=== PATIENT | male | born 1950 | race Caucasian/White ===

== ENCOUNTER 2018-09-15 07:30 | Day surgery (SDC) | payer MEDICARE ==
[2018-09-14 12:42] LABS: Absolute Monocytes 0.6 K/uL (0.1-1.3); Absolute Neutrophil 4.5 K/uL (1.8-8.0); Basophils % 0.8 % (0-1.3); Eosinophils % 3.6 % (0-4.4); MPV 9.1 fL (7.6-11.3); Monocytes % 8.3 % (3.3-12.3); RBC Red Blood Cell Count 5.58 M/uL (4.33-5.43)
--- NOTE | 2018-09-14 12:44 | RAD REPORT ---
EXAM DESCRIPTION: RAD - Chest Pa And Lat (2 Views) - 09/14/2018 12:37 pm CLINICAL HISTORY: Preop chest, pending cardiac catheterization, cardioversion COMPARISON: None. TECHNIQUE: PA and lateral views of the chest were obtained. FINDINGS: The lungs are clear. Lung markings are minimally prominent believed be baseline. Acute tea ng parenchymal process not suspected. Heart size is normal and central vasculature is within normal l imits. No pleural effusion or pneumothorax seen. No acute bony finding noted. No aortic abnormalit y. IMPRESSION: No acute cardiopulmonary process.
[2018-09-14 13:04] LABS: Potassium 4.5 mmol/L (3.5-5.1)
[2018-09-14 13:06] LABS: Protime INR 1.55
[2018-09-15] MEDS ORDERED: NA CHLORIDE 0.9% 500 ML ONE (07:43)
[2018-09-15] MEDS ORDERED: MIDAZOLAM HCL 5 MG/5 ML INJ ONE (08:11)
--- OUTSIDE RECORDS SUMMARY | 2018-09-15 08:12 | XMS REPORT ---
:1950 Author Organization eClinicalWorks Care Team Providers Name Role Phone Lui, Na Provider Role Unavailable Allergies No Known Allergies Problems Problem Type Condition Code Onset Dates Condition Status Problem Mixed hyperlipidemia E78.2 Active Problem Cervicalgia M54.2 Active Problem Seasonal allergies J30.2 Active Problem Obstructive sleep apnea (adult) G47.33 Active (pediatric) Problem Dependence on other enabling Z99.89 Active machines and devices Problem SHALINI (obstructive sleep apnea) G47.33 Active Problem Osteoarthritis, unspecified M19.90 Active osteoarthritis type, unspecified site Problem Intractable migraine without status G43.919 Active migrainosus, unspecified migraine type Problem Chronic fatigue R53.82 Active Problem 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
--- OUTSIDE RECORDS SUMMARY | 2018-09-15 08:12 | XMS REPORT ---
[...] Status Dosage System Date Date Duloxetine HCl [facility] 76332749421 30 MG Orally Jul 22, Active 1 capsule Once a day 2017 Results No Known Results Summary Purpose eClinicalWorks Submission
--- OUTSIDE RECORDS SUMMARY | 2018-09-15 08:12 | XMS REPORT ---
:1950 Author Organization [employer] Care Team Providers Name Role Phone Lui, Na Provider Role Unavailable Allergies, Adverse Reactions, Alerts Substance Reaction Event Type N.K.D.A. Info Not Available Non Drug Allergy Problems Problem Type Condition Code Onset Dates Condition Status Assessment Mixed hyperlipidemia E78.2 Active Assessment Intractable migraine without status G43.919 Active migrainosus, unspecified migraine type Assessment Personal history of cerebrovascular I69.90 Active accident with residual effects Assessment Seasonal allergies J30.2 Active Problem Hypertension I10 Active Assessment Chronic fatigue R53.82 Active Problem Migraine G43.909 Active Assessment Osteoarthritis, unspecified M19.90 Active osteoarthritis type, unspecified site Problem Mixed hyperlipidemia E78.2 Active Problem Cervicalgia M54.2 Active Problem Seasonal allergies J30.2 Active Problem Obstructive sleep apnea (adult) G47.33 Active (pediatric) Problem Dependence on other enabling Z99.89 Active machines and devices Assessment SHALINI (obstructive sleep apnea) G47.33 Active Assessment Apneic episode R06.81 Active Problem SHALINI (obstructive sleep apnea) G47.33 Active Assessment Tachycardia R00.0 Active Problem Osteoarthritis, unspecified M19.90 Active osteoarthritis type, unspecified site Problem Intractable migraine without status G43.919 Active migrainosus, unspecified migraine type Problem Chronic fatigue R53.82 Active Problem 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 Assessment Hypertension I10 Active Assessment Snoring R06.83 Active Assessment Cervicalgia M54.2 Active Assessment Somnolence, daytime R40.0 Active Problem Depression F32.9 Active Problem Stroke I63.9 Active Assessment 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 [address] - Orally Active as directed Aspir-81 ND 70701621561 81 MG Orally Active 1 tablet Once a day Losartan [facility] 42955357740 100 MG Orally Active 1 tablet Potassium Once a day Duloxetine HCl [facility] 90301075694 60 MG Orally Active 1 capsule Once a day Zyrtec Allergy [facility] 16338462246 10 MG Orally Active 1 tablet Once a day Amlodipine [facility] 94236756066 5 MG Orally Active 1 tablet Besylate Once a day Results No Known Results Summary Purpose eClinicalWorks Submission
[2018-09-15] MEDS ORDERED: METOPROLOL TARTRATE 5 MG/5 ML INJ IV ONE ×3 (08:15→08:24)
--- NOTE | 2018-09-15 17:08 | EKG ---
Test Date: 2018-09-15 Test Time: 08:17:35 Wire Steward: KUMAR MEASUREMENT RESULTS: Intervals: Rate: 81 TN: 188 QRSD: 76 QT: 392 QTc: 455 Garfield: P: 23 TN: 188 QRS: 25 T: 44 INTERPRETIVE STATEMENTS: Normal sinus rhythm Normal ECG No previous ECG available for comparison Electronically Signed On 09-15-18 17:06:56 [employer] by Mario Bolden
--- NOTE | 2018-09-15 21:01 | OP ---
Date of Procedure: 09/15/2018 Surgeon: Mario Bolden MD Procedure: Direct-current cardioversion. Indication: Atrial fibrillation. Indications: Mr. Granados is a 67-year-old with history of hypertension, paroxysmal atrial fibrillation , and history of CVA in the past. He is on Xarelto and metoprolol. He continues to have some diffic ulties with his atrial fibrillation with some dyspnea on exertion. He was admitted for cardioversion as an outpatient. Description Of Procedure: He was given a total of 12 mg of Versed for IV sedation. He received 4 to justa shocks, 2 shocks at 200 which did not convert him. The first shock of 300 converted him, but the n he went back into atrial fibrillation. He received 50 mg of Lopressor IV push slowly and then anot her shock of 300 converted him to sinus rhythm. There were no complications. No blood loss. Total conscious sedation was 45 minutes. Final Diagnosis: Atrial fibrillation, status post successful cardioversion. We will continue the metoprolol and Xarelto. I will put him on Multaq 400 b.i.d. He will see me in the office in 3 weeks. Additional Forensic Toxicologist: Mila Romero. LEXIE/RENU Voice ID: [id number] Report ID: [id number]
== END 2018-09-15 10:02 | disposition home health service (06) ==
LOC: CCL 07:30
DX: I48.0 Paroxysmal atrial fibrillation (principal); I10 Essential (primary) hypertension; F41.9 Anxiety disorder, unspecified; Z79.01 Long term (current) use of anticoagulants; Z86.73 Personal history of transient ischemic attack (TIA), and cerebral infarction without residual deficits; Z87.891 Personal history of nicotine dependence; Z82.49 Family history of ischemic heart disease and other diseases of the circulatory system
CPT/HCPCS: 36415; 71046; 80048; 85025; 85610; 85730; 92960; 93005; J2250

== ENCOUNTER 2020-03-02 07:40 | Day surgery (SDC) | payer MEDICARE ==
--- NOTE | 2020-02-29 12:00 | RAD REPORT ---
EXAM DESCRIPTION: RAD - Chest Pa And Lat (2 Views) - 02/29/2020 11:51 am CLINICAL HISTORY: pre op for [employer]orer [employer] Chest pain. COMPARISON: Chest Pa And Lat (2 Views) dated 09/14/2018 FINDINGS: The lungs are clear. The heart is normal in size. No displaced fractures. IMPRESSION: No acute or concerning finding suspected.
[2020-02-29 12:07] LABS: Absolute Lymphocytes (CBC) 1.9 K/uL (0.7-4.9); Basophils % 0.7 % (0-1.3); Hematocrit 47.1 % (39.6-49.0); Lymphocytes % 24.1 % (15.3-44.8); MPV 8.5 fL (7.6-11.3); RBC Red Blood Cell Count 5.15 M/uL (4.33-5.43)
[2020-02-29 12:10] LABS: Protime INR 1.32
[2020-02-29 12:18] LABS: Potassium 3.7 mmol/L (3.5-5.1)
[2020-03-02] MEDS ORDERED: NA CHLORIDE 0.9% 500 ML ONE (07:50)
--- OUTSIDE RECORDS SUMMARY | 2020-03-02 07:53 | XMS REPORT ---
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 Problem Decreased hearing of left ear H91.92 Active Problem Left non-suppurative otitis media H65.92 Active Problem Decreased hearing of both ears H91.93 Active Problem Obstructive sleep apnea (adult) G47.33 Active (pediatric) Problem Dependence on other enabling Z99.89 Active machines and devices Problem Chronic a-fib I48.2 Active Problem SHALINI (obstructive sleep apnea) G47.33 Active Problem Mixed hyperlipidemia E78.2 Active Problem Seasonal allergies J30.2 Active Problem Stroke I63.9 Active Problem Hypertension I10 Active Problem Cervicalgia M54.2 Active Problem Migraine G43.909 Active Problem Depression F32.9 Active Problem Intractable migraine without status G43.919 Active migrainosus, unspecified migraine type Medications No Known Medications Results No Known Results Summary Purpose eClinicalWorks Submission
--- OUTSIDE RECORDS SUMMARY | 2020-03-02 07:53 | XMS REPORT | Continuity of Care Document ---
:1950 Author Organization [facility] t Address [address] [place] [address] Care Team Providers Name Role Phone Unavailable Unavailable Unavailable Payers Payer Name Policy Type Policy Number Effective Date Expiration Date S ource Problems Condition Condition Condition Status Onset Resolution Last Treating Co mments Source Name Details Category Date Date Treatment Clinician Date Mixed Mixed Problem Active [facility] hyperlipid hyperlipid Celia kes - emia emia [facility] Cervicalgi Cervicalgi Problem Active [facility] Seasonal Seasonal Problem [facility] allergies [facility] SHALINI SHALINI Problem Active [facility] (obstructi (obstructi Celia kes - ve sleep ve sleep Memori a apnea) apnea) l Outpati ent Clinics Dependence Dependence Problem Active [facility] on other on other [facility] - enabling enabling Memori a machines machines l and and Outpati devices devices ent Clinics Osteoarthr Osteoarthr Diagnosis Active [facility] itis, itis, [facility] - unspecifie unspecifie Me moria d d l osteoarthr osteoarthr Ou tpati itis type, itis type, en t unspecifie unspecifie Cl inics d site d site Intractabl Intractabl Problem Active [facility] e migraine e migraine Celia kes - without without Memoria status status l migrainosu migrainosu Ou tpati s, s, ent unspecifie unspecifie Cl inics d migraine d migraine type type Chronic Chronic Problem Active [facility] fatigue fatigue [facility] Moderate Moderate Diagnosis Active [facility] episode of episode of Celia kes - recurrent recurrent Florian 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 tpati disorder disorder ent Clinics Depression Depression Problem Active [facility] Stroke Stroke Problem [facility] Hypertensi Hypertensi Problem Active [facility] on on [facility] Migraine Migraine Problem Active [facility] Chronic Chronic Problem Active [facility] a-fib a-fib [facility] Decreased Decreased Problem Active [facility] hearing of hearing of Celia kes - left ear left ear Memori a l [facility] Left Left Problem Active [facility] non-suppur non-suppur Celia kes - ative ative Memoria otitis otitis l media media [facility] Decreased Decreased Problem Active [facility] hearing of hearing of Celia kes - both ears both ears Florian lonnie l [facility] Blood Blood Diagnosis Active [facility] tests for tests for Luke s - routine routine [facility] general general l physical physical Outpat i examinatio examinatio en t n n Clinics Allergies, Adverse Reactions, Alerts Allergy Allergy Status Severity Reaction(s) Onset Inactive Treating Comm ents Source Name Type Date Date Clinician No Known DA Active [facility]ie 10-11 s 00:00: [address] Medications Ordered Filled Start Stop Current Ordering Indication Dosage Frequency Signature Comments Components Source Medication Medication Date Date Medication? Clinician (SIG) Name Name Hydrochloro Hydrochloro Yes Na Lui [address] [facility] thiazide thiazide 5-12 in the [facility] - 00:00: morning [facility] 00 [facility] Losartan Losartan Yes Na Lui [address] [facility] Potassium-H Potassium-H 7-18 L ukes - CTZ CTZ 00:00: Memoria 00 l [facility] Neomycin-Po Neomycin-Po Yes Na Lui [address] [facility] [address] lymyxin-HC lymyxin-HC 4-12 into Adan es - 00:00: affected Memoria 00 ear l [facility] Augmentin Augmentin Yes Na Lui [address] [facility] 4-12 [facility] - 00:00: Memoria 00 l Outpat[facility] ent Clinics Crestor Crestor Yes Na Lui [address] [facility] 3-05 [facility] - 00:00: Memoria 00 l Outpati ent Clinics Tramadol Tramadol Yes Na Lui [address] [facility] HCl HCl 3-05 as needed [facility] - 00:00: Memoria 00 l Outpati ent Clinics Metoprolol Metoprolol Yes Na Lui [address] [facility] Succinate Succinate 3-05 [facility] - 00:00: Memoria 00 l Outpati ent Clinics Xarelto Xarelto Yes Na Lui [address] [facility] 3-05 with food [facility] - 00[facility]00: Memoria 00 l Outpati ent Clinics Losartan Losartan Yes Na Lui [address] [facility] Potassium Potassium [facility] Duloxetine Duloxetine Yes Na Lui [address] [facility] HCl HCl [facility] Zyrtec Zyrtec Yes Na Lui [address] [facility] Allergy Allergy [facility]ics Aspir-81 -81 Yes Na Lui [address] [facility]ics Multivitami Multivitami Yes Na Lui as [facility] n n directed [facility] [address] [facility] Sotalol HCl Sotalol HCl Yes Na Lui [address] [facility] Procedures This patient has no known procedures. Encounters Start End Encounter Admission Attending Care Care Encounter Source Date/Time Date/Time Type Type Clinicians Facility Department ID 2019-12-28 2019-12-28 Outpatient Saadia Zeet [id number] [facility] 11:20:00 11:20:00 t [employer] [facility] Medicine Outpati ent Clinics 2019-12-17 2019-12-17 [place] [place] [place] [id number] [address] 11:08:00 11:08:00 t [employer] [facility] Medicine l Medicine Outpati ent Clinics 2019-09-06 2019-09-06 [place] [place] [id number] 14:37:00 14:37:00 t Specialty/U Celia kes - Specialty rology [facility] a /Urology Clinic l Clinic Outpati ent Clinics 2019-06-17 2019-06-17 [facility] [id number] [address] 13:15:00 13:15:00 t [place] [email or web address] [facility] - Drive [facility] Medicine l Medicine Outpati ent Clinics 2019-04-09 2019-04-09 [facility] [id number] [address] 13:10:00 13:10:00 t [place] [email or web address] [facility] - Drive [facility] Medicine Outpati ent Clinics 2019-03-04 2019-03-04 [facility] [id number] 09:40:00 09:40:00 t [email or web address] [email or web address] - Zapproved [facility] l Medicine Outpati ent Clinics 2018-12-04 2018-12-04 [facility] [id number] 15:26:00 15:26:00 t Admittedly s - Zapproved [facility] Medicine Medicine Outpati ent Clinics 2018-11-27 2018-11-27 [facility] [id number] 09:40:00 09:40:00 t [place] [email or web address] Hublished [facility] Medicine l Medicine Outpati ent Clinics 2018-10-20 2018-10-20 [facility] [id number] [address] 08:15:00 08:15:00 t [email or web address] [email or web address] - Zapproved [facility] Medicine l Medicine Outpati ent Clinics 2018-08-21 2018-08-21 [facility] [id number] [address] 08:57:00 08:57:00 t [email or web address] [email or web address] [facility] - Zapproved [facility] Medicine Outpati ent Clinics 2018-08-13 2018-08-13 [facility] [id number] 08:55:00 08:55:00 t [email or web address] [email or web address] - Zapproved [facility] Medicine Outpati ent Clinics 2018-07-22 2018-07-22 [facility] [id number] 08:30:00 08:30:00 t Admittedly s Hublished [facility] Medicine Outpati ent Clinics Results Test Description Test Time Test Comments Results Result Comments Source BASIC METABOLIC PANEL 2019-10-13 07:19:00 Test Item Value Reference Range Interpretation Comme nts SODIUM (test code = NA) 137 MMOL/L 137-145 N POTASSIUM (test code = K) 3.6 MMOL/L 3.5-5.1 N CHLORIDE (test code = CL) 101 MMOL/L 98-107 N CARBON DIOXIDE (test code = CO2) 27 MMOL/L 22-30 N GLUCOSE (test code = GLU) 136 MG/DL 74-106 H BLOOD UREA NITROGEN (test code = 13 MG/DL 9-20 N BUN) GLOMERULAR FILTRATION RATE (test > 60 Reporting units: ml/min/1.73 code = GFR) m2 (Modified M DRD Formula)Referen ce Range: > or = 60 ml/min/1.7 3 m2 CREATININE (test code = CREAT) 0.70 MG/DL 0.66-1.25 CALCIUM (test code = CA) 8.2 MG/DL 8.4-10.2 L [id number] 07:18:00 Test Item Value Reference Range Interpretation Comments ACT-ISTAT (test code = ACTI) 208 SEC 74-137 H BASIC METABOLIC [id number] 06:39:00 Test Item Value Reference Range Interpretation Comments SODIUM (test code = 137 MMOL/L 137-145 N NA) POTASSIUM (test code = MMOL/L 3.5-5.1 K) CHLORIDE (test code = 101 MMOL/L 98-107 N CL) CARBON DIOXIDE (test 27 MMOL/L 22-30 N code = CO2) GLUCOSE (test code = 136 MG/DL 74-106 H GLU) BLOOD UREA NITROGEN 13 MG/DL 9-20 N (test code = BUN) GLOMERULAR FILTRATION > 60 Report ing units: RATE (test code = GFR) ml/mi n/1.73 m2 (Modified MDRD Formula)Referen ce Range: > or = 6 0 ml/min/1.73 m2 CREATININE (test code 0.70 MG/DL 0.66-1.25 = CREAT) CALCIUM (test code = 8.2 MG/DL 8.4-10.2 L CA) BASIC METABOLIC [id number] 06:38:00 Test Item Value Reference Range Interpretation Comments SODIUM (test code = 137 MMOL/L 137-145 N NA) POTASSIUM (test code = MMOL/L 3.5-5.1 K) CHLORIDE (test code = 101 MMOL/L 98-107 N CL) CARBON DIOXIDE (test MMOL/L 22-30 code = CO2) GLUCOSE (test code = MG/DL 74-106 GLU) BLOOD UREA NITROGEN MG/DL 9-20 (test code = BUN) GLOMERULAR FILTRATION > 60 Report ing units: RATE (test code = GFR) ml/mi n/1.73 m2 (Modified MDRD Formula)Referen ce Range: > or = 6 0 ml/min/1.73 m2 CREATININE (test code 0.70 MG/DL 0.66-1.25 = CREAT) CALCIUM (test code = MG/DL 8.7-9.7 CA) BASIC METABOLIC [id number] 06:38:00 Test Item Value Reference Range Interpretation Comments SODIUM (test code = 137 MMOL/L 137-145 N NA) POTASSIUM (test code = MMOL/L 3.5-5.1 K) CHLORIDE (test code = 101 MMOL/L 98-107 N CL) CARBON DIOXIDE (test 27 MMOL/L 22-30 N code = CO2) GLUCOSE (test code = MG/DL 74-106 GLU) BLOOD UREA NITROGEN 13 MG/DL 9-20 N (test code = BUN) GLOMERULAR FILTRATION > 60 Report ing units: RATE (test code = GFR) ml/mi n/1.73 m2 (Modified MDRD Formula)Referen ce Range: > or = 6 0 ml/min/1.73 m2 CREATININE (test code 0.70 MG/DL 0.66-1.25 = CREAT) CALCIUM (test code = MG/DL 8.7-9.7 CA) BASIC METABOLIC [id number] 06:35:00 Test Item Value Reference Range Interpretation Comments SODIUM (test code = NA) 137 MMOL/L 137-145 N POTASSIUM (test code = K) MMOL/L 3.5-5.1 CHLORIDE (test code = CL) 101 MMOL/L 98-107 N CARBON DIOXIDE (test code = CO2) MMOL/L 22-30 GLUCOSE (test code = GLU) MG/DL 74-106 BLOOD UREA NITROGEN (test code = MG/DL 9-20 BUN) GLOMERULAR FILTRATION RATE (test code = GFR) CREATININE (test code = CREAT) MG/DL 0.66-1.25 CALCIUM (test code = CA) MG/DL 8.7-9.7 CBC W/AUTO [id number] 06:17:00 Test Item Value Reference Range Interpretation Comments WHITE BLOOD CELL (test code = 12.7 K/MM3 3.8-9.8 H WBC) RED BLOOD CELL (test code = 4.32 M/MM3 3.95-5.67 RBC) HEMOGLOBIN (test code = HGB) 13.6 G/DL 12.4-16.7 HEMATOCRIT (test code = HCT) 40.7 % 35.9-49.5 MEAN CELL VOLUME (test code = 94 fL 81.7-96.1 N MCV) MEAN CELL HGB (test code = MCH) 31.5 pg 27.6-33.2 N MEAN CELL HGB CONCETRATION 33.4 % 32.9-35.5 N (test code = MCHC) RED CELL DISTRIBUTION WIDTH 14.0 % 12.1-15.2 N (test code = RDW) PLATELET COUNT (test code = 138 K/MM3 129-368 PLT) MEAN PLATELET VOLUME (test code 10.3 fl 7.4-10.4 N = MPV) NEUTROPHIL % (test code = NT%) 84.3 % 43-75 H IMMATURE GRANULOCYTE % (test 0.6 % 0.0-2.0 N code = IG%) LYMPHOCYTE % (test code = LY%) 9.6 % 14-44 L MONOCYTE % (test code = MO%) 5.4 % 4-13 N EOSINOPHIL % (test code = EO%) 0.0 % 0-6 N BASOPHIL % (test code = BA%) 0.1 % 0-2 N NUCLEATED RBC % (test code = 0.0 % 0-1.0 N NRBC%) NEUTROPHIL # (test code = NT#) 10.66 K/mm3 2.0-7.6 H IMMATURE GRANULOCYTE # (test 0.08 x10 3/uL 0-0.03 H code = IG#) LYMPHOCYTE # (test code = LY#) 1.22 K/mm3 1.0-3.8 N MONOCYTE # (test code = MO#) 0.68 K/mm3 0.1-0.8 N EOSINOPHIL # (test code = EO#) 0.00 K/mm3 0.0-0.2 N BASOPHIL # (test code = BA#) 0.01 K/mm3 0.0-0.2 N NUCLEATED RBC # (test code = 0.00 K/mm3 0.0-0.1 N NRBC#) [id number] 12:37:00 Test Item Value Reference Range Interpretation Comments ACT-ISTAT (test code = ACTI) 323 SEC 74-137 H [id number] 11:26:00 Test Item Value Reference Range Interpretation Comments ACT-ISTAT (test code = ACTI) 362 SEC 74-137 H [id number] 11:26:00 Test Item Value Reference Range Interpretation Comments ACT-ISTAT (test code = ACTI) 285 SEC 74-137 H [id number] 11:26:00 Test Item Value Reference Range Interpretation Comments ACT-ISTAT (test code = ACTI) 329 SEC 74-137 H [id number] 11:26:00 Test Item Value Reference Range Interpretation Comments ACT-ISTAT (test code = ACTI) 296 SEC 74-137 H [id number] 11:26:00 Test Item Value Reference Range Interpretation Comments ACT-ISTAT (test code = ACTI) 307 SEC 74-137 H BASIC METABOLIC [id number] 06:52:00 Test Item Value Reference Range Interpretation Comments SODIUM (test code = 138 MMOL/L 137-145 N NA) POTASSIUM (test code = 3.6 MMOL/L 3.5-5.1 N K) CHLORIDE (test code = 97 MMOL/L 98-107 L CL) CARBON DIOXIDE (test 32 MMOL/L 22-30 H code = CO2) GLUCOSE (test code = 147 MG/DL 74-106 H GLU) BLOOD UREA NITROGEN 13 MG/DL 9-20 N (test code = BUN) GLOMERULAR FILTRATION > 60 Report ing units: RATE (test code = GFR) ml/mi n/1.73 m2 (Modified MDRD Formula)Referen ce Range: > or = 6 0 ml/min/1.73 m2 CREATININE (test code 1.00 MG/DL 0.66-1.25 N = CREAT) CALCIUM (test code = 9.1 MG/DL 8.4-10.2 N CA) [id number] 06:52:00 Test Item Value Reference Range Interpretation Comments MAGNESIUM (test code = MAG) 1.9 MG/DL 1.6-2.3 N PROTHROMBIN [id number] 06:52:00 Test Item Value Reference Range Interpretation Comments PROTHROMBIN TIME 11.8 SECONDS 9.4-12.5 N PATIENT (test code = PTP) INTERNATIONAL NORMAL 1.1 The INR is to be RATIO (test code = used only for INR) monitoring oral anticoagulantth erap y. INDICATION I NR VALUE ---- ---- ---- -------1. Prophylaxis, de ep venous thrombos is, including hig h risk surgery. 2.0 - 3.0 2. Prophylaxis, de ep venous thrombos is, hip surgery, treatment for d eep venous thrombosis or pulmonary prevention of systemic emboli sm in patients wit h valvular heart disease, atrial fibrillation, tissue heart va lve, or acute myocar dial infarction. 2.0 - 3 .0 3. Mechanical prosthesis hear t valves, recurrent syste vandana embolism. 3.0 - 4.5 PTT [id number] 06:52:00 Test Item Value Reference Range Interpretation Comments PTT ACTIVATED (test code = APTT) 32.5 SECONDS 25.1-36.5 N BASIC METABOLIC [id number] 06:49:00 Test Item Value Reference Range Interpretation Comments SODIUM (test code = NA) 138 MMOL/L 137-145 N POTASSIUM (test code = K) 3.6 MMOL/L 3.5-5.1 N CHLORIDE (test code = CL) 97 MMOL/L 98-107 L CARBON DIOXIDE (test code = CO2) MMOL/L 22-30 GLUCOSE (test code = GLU) MG/DL 74-106 BLOOD UREA NITROGEN (test code = MG/DL 9-20 BUN) GLOMERULAR FILTRATION RATE (test code = GFR) CREATININE (test code = CREAT) MG/DL 0.66-1.25 CALCIUM (test code = CA) MG/DL 8.7-9.7 [id number] 06:49:00 Test Item Value Reference Range Interpretation Comments MAGNESIUM (test code = MAG) MG/DL 1.6-2.3 CBC W/AUTO [id number] 06:39:00 Test Item Value Reference Range Interpretation Comments WHITE BLOOD CELL (test code = 9.2 K/MM3 3.8-9.8 N WBC) RED BLOOD CELL (test code = 5.49 M/MM3 3.95-5.67 N RBC) HEMOGLOBIN (test code = HGB) 17.2 G/DL 12.4-16.7 H HEMATOCRIT (test code = HCT) 50.8 % 35.9-49.5 H MEAN CELL VOLUME (test code = 93 fL 81.7-96.1 N MCV) MEAN CELL HGB (test code = MCH) 31.3 pg 27.6-33.2 N MEAN CELL HGB CONCETRATION 33.9 % 32.9-35.5 N (test code = MCHC) RED CELL DISTRIBUTION WIDTH 13.8 % 12.1-15.2 N (test code = RDW) PLATELET COUNT (test code = 193 K/MM3 129-368 N PLT) MEAN PLATELET VOLUME (test code 9.9 fl 7.4-10.4 N = MPV) NEUTROPHIL % (test code = NT%) 64.5 % 43-75 N IMMATURE GRANULOCYTE % (test 0.2 % 0.0-2.0 N code = IG%) LYMPHOCYTE % (test code = LY%) 25.1 % 14-44 N MONOCYTE % (test code = MO%) 7.3 % 4-13 N EOSINOPHIL % (test code = EO%) 2.2 % 0-6 N BASOPHIL % (test code = BA%) 0.7 % 0-2 N NUCLEATED RBC % (test code = 0.0 % 0-1.0 N NRBC%) NEUTROPHIL # (test code = NT#) 5.94 K/mm3 2.0-7.6 N IMMATURE GRANULOCYTE # (test 0.02 x10 3/uL 0-0.03 N code = IG#) LYMPHOCYTE # (test code = LY#) 2.31 K/mm3 1.0-3.8 N MONOCYTE # (test code = MO#) 0.67 K/mm3 0.1-0.8 N EOSINOPHIL # (test code = EO#) 0.20 K/mm3 0.0-0.2 N BASOPHIL # (test code = BA#) 0.06 K/mm3 0.0-0.2 N NUCLEATED RBC # (test code = 0.00 K/mm3 0.0-0.1 N NRBC#) BEDSIDE [id number] 10:33:00 Test Item Value Reference Range Interpretation Comments BEDSIDE CREATININE (test code = 1.2 MG/DL 0.6-1.4 N CREATBED) - CTA [id number] 09:27:00 Patient Name: MARLEN CHUA Unit No: [id number] EXAMS: CPT CODE: [id number] CTA CHEST 07383 EXAM: - CTA CHEST Location code:C3 HISTORY: 68 yearsold Male with AFIB. Evaluate for pulmonary embolus. TECHNIQUE: CHEST:Volumetric data acquisition through the chest with intravenous contrast timed to maximally opacify the pulmonary arteries constructed as contiguous axial volumes, coronal MIP and sagittal reconstruction images. Automated exposure reduction (Auto mA/Smart mA) was utilized in compliance with ACR Image Wisely with DLP of 796 mGy-cm. COMPARISON: None FINDINGS: Lines and tubes: None. Pulmonary arteries: No filling defects are seen to the segmental level. Lungs and pleura: There is moderate dependent atelectasis present bilaterally. No suspicious pulmonary nodule. Mild pleural thickening seen along the inferior lingular segment. No pleural effusion. No pneumothorax. No pulmonary consolidation. No central endobronchial masses. Mediastinum and neck: Nonspecific 1.1 cm right paratracheal lymph node with normal fatty hilum. Otherwise no mediastinal or hilar adenopathy.. The thyroid gland is not well evaluated within the field of view. Cardiac: No cardiomegaly or pericardial effusion. Mild coronary artery calcification is present. Thoracic Aorta: The aorta is normal in caliber. A few scattered atherosclerotic calcifications noted along the thoracic aorta. Abdomen: There is small hiatal hernia. Otherwise, no upper abdominal abnormality identified. Musculoskeletal: No acute osseous findings. Mild, multilevel degenerative changes of the spine are present. IMPRESSION: No evidence of pulmonary embolus to the segmental level. No significant acute intrathoracic process. [facility] NAME: MARLEN CHUA [id number] [address] PHYS: [place] [address] : 1950 AGE: 68 SEX: M LOC: Z.CTS PHONE #: [phone] EXAM DATE: 10/11/2019 STATUS: REG CLI FAX #: [phone] RAD #: D/C DT PAGE 1 Signed Report (CONTINUED) Patient Na me: MARLEN CHUA Unit No: [id number] EXAMS: CPT CODE: [id number] CTA CHEST 13707 <Continued> at 926 Reported and signed by: Margaret Todd MD CC: Aleksandr Crain Technologist: Ivan Johnson, RT(R); Caden CTDI: DLP: Trnscrpt: 10/11/2019 (926) [email or web address] [facility] NAME: MARLEN [address] PHYS: [place] [address] : 1950 AGE: 68 SEX: M LOC: RachealCTS PHONE #: [phone] EXAM DATE: 10/11/2019 STATUS: REG CLI FAX #: [phone] RAD #: D/C DT PAGE 2 Signed Report Patient Name: MARLEN CHUA Unit No: [id number] EXAMS: CPT CODE: [id number] CTA CHEST 38571 <Continued> Orig Print D/T: S: 10/11/2019 (929) [facility] NAME: MARLEN CHUA[address] PHYS: [place] [address] : 1950 AGE: 68 SEX: M LOC: RachealCTS PHONE #: [phone] EXAM DATE: 10/11/2019 STATUS: REG CLI FAX #: [phone] RAD #: D/C DT PAGE 3 Signed Report
--- OUTSIDE RECORDS SUMMARY | 2020-03-02 07:53 | XMS REPORT ---
:1950 Author Organization [employer] Care Team Providers Name Role Phone Lui, Na Provider Role Unavailable Allergies, Adverse Reactions, Alerts Substance Reaction Event Type N.K.D.A. 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 Problem Decreased hearing of left ear H91.92 Active Problem Left non-suppurative otitis media H65.92 Active Assessment Hypertension I10 Active Assessment Osteoarthritis, unspecified M19.90 Active osteoarthritis type, unspecified site Problem Decreased hearing of both ears H91.93 Active Assessment Chronic a-fib I48.2 Active Problem Obstructive sleep apnea (adult) G47.33 Active (pediatric) Problem Dependence on other enabling Z99.89 Active machines and devices Problem Chronic a-fib I48.2 Active Problem SHALINI (obstructive sleep apnea) G47.33 Active Problem Mixed hyperlipidemia E78.2 Active Problem Seasonal allergies J30.2 Active Assessment 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 Problem Stroke I63.9 Active Problem Hypertension I10 Active Problem Cervicalgia M54.2 Active Problem Depression F32.9 Active Medications Medication Code Code Instructions Start End Status Dosage System Date Date Crestor [facility] 95487257944 10 MG Orally Active 1 table t Once a day Augmentin [facility] 03562792726 875-125 MG November Active 1 table t Orally every 12, 12 hrs 2018 Xarelto [facility] 13940794816 20 MG Orally Active 1 table t Once a day with food Multivitamin [facility] 71436-57[address] - Orally Active as directed Duloxetine HCl [facility] 54466008134 60 MG Orally Active 1 capsule Once a day Hydrochlorothiazide ND 74253040805 25 MG Orally December 27, Act valarie 1 tablet Once a day 2019 in the morning Qnfpywbq-Mkbpmqquk-AA [facility] 57078950169 3.5-13276-3 November Ac tive 4 drops Otic Three 12, into times a day 2018 affected ear Losartan [facility] 79903124200 100-12.5 MG February Active 1 table t Potassium-HCTZ Orally Once a 2018 Losartan Potassium [facility] 48685750161 100 MG Orally Act valarie 1 tablet Once a day Metoprolol Succinate ND 95858747236 100 MG Orally A ctive 1 capsule Once a day Aspir-81 ND 45584900253 81 MG Orally Active 1 tabl et Once a day Crestor ND 55844318169 10 MG Orally Active 1 table t Once a day Zyrtec Allergy [facility] 34219960211 10 MG Orally Active 1 tablet Once a day Sotalol HCl [facility] 00115908787 80 MG Orally Active 1 t ablet every 12 hrs Tramadol HCl [facility] 87433986473 50 MG Orally Active 1 tablet every 6 hrs as needed Results No Known Results Summary Purpose [employer]ClinicalWorks Submission
[2020-03-02] MEDS ORDERED: LIDOCAINE 1% MPF 30 ML VIAL ONE (08:10)
[2020-03-02] MEDS ORDERED: HEPA 1000U/500MLS 1,000 UNIT/500 ML BAG IV ONE (08:10)
[2020-03-02] MEDS ORDERED: MIDAZOLAM HCL 2 MG/2 ML INJ ONE ×2 (08:11→08:29)
[2020-03-02] MEDS ORDERED: FENTANYL CITR 100 MCG/2 ML ONE (08:12)
[2020-03-02] MEDS ORDERED: NA CHLORIDE 0.9% 0 ML ONE (08:12)
[2020-03-02] MEDS ORDERED: ATROPINE SULF 1 MG/10 ML SYR IV ONE (08:12)
[2020-03-02 09:58] VITALS: TEMP 97.8
[2020-03-02 11:12] VITALS: O2SAT 98
[2020-03-02 11:14] VITALS: BP 106/57
--- NOTE | 2020-03-02 21:57 | OP ---
Date of Procedure: 03/02/2020 Surgeon: Mario Bolden MD Ict Business Analyst: Lucas Gutierrez. Procedures: Left heart catheterization, selective coronary arteriogram, left ventriculogram, left ve ntricular end-diastolic pressure measurements. History Of Present Illness: Mr. Granados is a 69-year-old male, who has had paroxysmal atrial fibrillat ion, status post ablation in September of 2019, continued to have some chest pain consistent with unst able angina. Had a negative stress test. He had a Holter monitor showing paroxysmal nonsustained ve ntricular tachycardia. He does not tolerate Multaq, sotalol. He is on beta-blockers and he is on Xa relto, which has been held for 48 hours. Was scheduled for a heart catheterization today. Description Of Procedure: He was brought to the microbiology laboratory manager as an outpatient, prepped and draped in the routine sterile fashion. Given Versed and fentanyl for sedation. A 10 cc of Xylocaine was used to anesthesia in the right common femoral area. Using the Seldinger technique, we introduced a 6-[place] sheath successfully. Angiography there was normal. Angio-Seal was used to close the case. A [employer] ns catheter left and right were used to cannulate the left main and right main respectively. He was found to have normal coronaries in the LAD, circumflex and RCA was normal. He was codominant. Left ventriculogram was done using the JR4 catheter. He was found to have a normal ejection fraction. No wall motion abnormalities and his left ventricular end-diastolic pressure . There were no complications. Blood Loss: 5 cc. Anesthesia: Total conscious sedation was 30 minutes. Final Diagnoses: Ventricular tachycardia nonsustained, paroxysmal atrial fibrillation, normal heart catheterization, normal wall motion, normal ejection fraction, normal left ventricular end-diastolic pressure. We will continue medical management. The patient will go home today after 2 hours of bedrest and I w ill see him in the office in the next week or two. LEXIE/SALLYL Voice ID: [id number] Report ID: [id number]
== END 2020-03-02 11:00 | disposition home or self-care (01) ==
LOC: CCL 07:40
DX: I47.2 Ventricular tachycardia (principal); I48.0 Paroxysmal atrial fibrillation; I11.0 Hypertensive heart disease with heart failure; I50.22 Chronic systolic (congestive) heart failure; F41.9 Anxiety disorder, unspecified; Z11.59 Encounter for screening for other viral diseases; F17.210 Nicotine dependence, cigarettes, uncomplicated; Z79.01 Long term (current) use of anticoagulants; Z79.82 Long term (current) use of aspirin; Z82.49 Family history of ischemic heart disease and other diseases of the circulatory system
CPT/HCPCS: 85025; 80048; 36415; 85610; 85730; 71046; 93458; U0002; C1893; C1760; J2250 ×2; J3010; J7040; J1644; J0583

== ENCOUNTER 2023-07-02 10:15 | Emergency (ER) | payer MEDICARE ==
--- OUTSIDE RECORDS SUMMARY | 2023-07-02 10:21 | XMS REPORT | Continuity of Care Document ---
:1950 Author Organization [facility] t Address [address] [facility] [address] [place] [address] Care Team Providers Name Role Phone NADEEM JUSTIN Primary Care Physician Unavailable Bijan Nava Attending Clinician Unavailable Nadeem Justin Attending Clinician Unavailable Susana RN, Lisa Gibbons Attending Clinician Unavailable TIFFANIE SYED Attending Clinician Unavailable Only, Ang Db Test Attending Clinician Unavailable Tiffanie Lopez Attending Clinician Aleksandr Crain Attending Clinician Unavailable Payers Payer Name Policy Type Policy Number Effective Date Expiration Date Joy newsome [facility] [id number] 2020 [facility] Advantage 00:00:[address] [facility] MEDICARE MB [id number] [facility] NOVITAS - [facility] MEDICARE MB [id number] [facility] NOVITAS - [facility] Problems Condition Condition Condition Status Onset Resolution Last Treating Co mments Source Name Details Category Date Date Treatment Clinician Date Depression Depression Disease Active 2016-0 U nivers 2-15 ity of 00:00: [place] [address] [place] [address] Branch [id number] Morbid Problem Commo n 9104 (severe) Spirit obesity - [facility] due to 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 Hearing Decreased Problem Commo n loss hearing of Spirit both ears - 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 - CHI machines [facility] devices [facility] Chronic Chronic Problem Common fatigue fatigue Spirit syndrome - [facility] [id number] Obstructiv Problem Com mon e sleep Spirit apnea - [facility]I (adult) (pediatric [facility] ) [facility] [id number] Left Problem Common non-suppur Spirit ative - CHI otitis [facility] [id number] Prediabete Problem Co mmon s Spirit - [facility] Depression Depression Problem C ommon Spirit - [facility] [id number] Cervicalgi Problem Com mon a Spirit - [facility] Stroke Stroke Problem [facility] - [facility] Adult Blood Problem Common health [facility] - [facility] n general [facility] examinatio Medica l n [place] [id number] Tachycardi Problem Comm on a Spirit - [facility] Allergies, Adverse Reactions, Alerts Allergy Allergy Status Severity Reaction(s) Onset Inactive Treating Comm ents Source Name Type Date Date Clinician No Known DA Active U 2020-0 [facility] 00:00: [address] No Known DA Active U 2020-0 [facility] Allergie 10-11 [facility] 00:00: [address] NO KNOWN Drug Active Univers ALLERGIE Class [facility] Social History Social Habit Start Date Stop Date Quantity Comments Source History of Tobacco [facility] - [facility] Use [facility] Sex Assigned At Common Sp juanito - [facility] Exposure to 2021-12-11 2021-12-21 Not sure [facility] SARS-CoV-2 (event) 00:00:00 09:00:00 [facility] Alcohol intake 2019-01-19 2019-01-19 3.43 /d [facility] 00:00:00 00:00:00 [facility] Branch Cigarettes smoked 2015-10-02 2015-10-02 [facility] current (pack per 00:00:00 00:00:00 Medical Branch day) - Reported Cigarette 2015-10-02 2015-10-02 [facility] pack-years 00:00:00 00:00:00 [facility] Tobacco use and 2015-10-02 2015-10-02 Never used [facility] exposure 00:00:00 00:00:00 Medical Branch Smoking Status Start Date Stop Date Source Former Smoker 2023-06-11 00:00:00 2023-06-11 00:00:00 [facility] pirit - [facility] Medications Ordered Filled Start Stop Current Ordering Indication Dosage Frequency Signature Comments Components Source Medication Medication Date Date Medication? Clinician (SIG) Name Name hydroCHLORO hydroCHLORO No 1{table QD hydroCHLOR thiazide 25 thiazide 25 5-12 t_in_th Othiazide MG MG 00:00: e_morni 25 MG 00 ng} hydroCHLORO hydroCHLORO No 1{table QD hydroCHLOR thiazide 25 thiazide 25 5-12 t_in_th Othiazide MG MG 00:00: e_morni 25 MG 00 ng} hydroCHLORO hydroCHLORO 2020-0 No 1{table QD hydroCHLOR thiazide 25 thiazide 25 5-12 t_in_th Othiazide MG MG 00:00: e_morni 25 MG 00 ng} hydroCHLORO hydroCHLORO 2020-0 No 1{table QD hydroCHLOR thiazide 25 thiazide 25 5-12 t_in_th Othiazide MG MG 00:00: e_morni 25 MG 00 ng} hydroCHLORO hydroCHLORO 2020-0 No 1{table QD hydroCHLOR thiazide 25 thiazide 25 5-12 t_in_th Othiazide MG MG 00:00: e_morni 25 MG 00 ng} hydroCHLORO hydroCHLORO 2020-0 No 1{table QD hydroCHLOR thiazide 25 thiazide 25 5-12 t_in_th Othiazide MG MG 00:00: e_morni 25 MG 00 ng} hydroCHLORO hydroCHLORO 2020-0 No 1{table QD hydroCHLOR thiazide 25 thiazide 25 5-12 t_in_th Othiazide MG MG 00:00: e_morni 25 MG 00 ng} hydroCHLORO hydroCHLORO 2020-0 No 1{table QD hydroCHLOR thiazide 25 thiazide 25 5-12 t_in_th Othiazide MG MG 00:00: e_morni 25 MG 00 ng} hydroCHLORO hydroCHLORO 2020-0 No 1{table QD hydroCHLOR thiazide 25 thiazide 25 5-12 t_in_th Othiazide MG MG 00:00: e_morni 25 MG 00 ng} hydroCHLORO hydroCHLORO 2020-0 No 1{table QD hydroCHLOR thiazide 25 thiazide 25 5-12 t_in_th Othiazide MG MG 00:00: e_morni 25 MG 00 ng} hydroCHLORO hydroCHLORO 2020-0 No 1{table QD hydroCHLOR thiazide 25 thiazide 25 5-12 t_in_th Othiazide MG MG 00:00: e_morni 25 MG 00 ng} hydroCHLORO hydroCHLORO 2020-0 No 1{table QD hydroCHLOR thiazide 25 thiazide 25 5-12 t_in_th Othiazide MG MG 00:00: e_morni 25 MG 00 ng} hydroCHLORO hydroCHLORO 2020-0 No 1{table QD hydroCHLOR thiazide 25 thiazide 25 5-12 t_in_th Othiazide MG MG 00:00: e_morni 25 MG 00 ng} hydroCHLORO hydroCHLORO 2020-0 No 1{table QD hydroCHLOR thiazide 25 thiazide 25 5-12 t_in_th Othiazide MG MG 00:00: e_morni 25 MG 00 ng} hydroCHLORO hydroCHLORO 2020-0 No 1{table QD hydroCHLOR thiazide 25 thiazide 25 5-12 t_in_th Othiazide MG MG 00:00: e_morni 25 MG 00 ng} hydroCHLORO hydroCHLORO 2020-0 No 1{table QD hydroCHLOR thiazide 25 thiazide 25 5-12 t_in_th Othiazide MG MG 00:00: e_morni 25 MG 00 ng} Losartan Losartan 2019-0 No 1{table QD Losartan Potassium-H Potassium-H 7-18 t} Potassium- CTZ CTZ 00:00: HCTZ 100-12.5 MG 100-12.5 MG 00 100-12.5 MG Losartan Losartan 2019-0 No 1{table QD Losartan Potassium-H Potassium-H 7-18 t} Potassium- CTZ CTZ 00:00: HCTZ 100-12.5 MG 100-12.5 MG 00 100-12.5 MG Losartan Losartan 2019-0 No 1{table QD Losartan Potassium-H Potassium-H 7-18 t} Potassium- CTZ CTZ 00:00: HCTZ 100-12.5 MG 100-12.5 MG 00 100-12.5 MG Losartan Losartan 2019-0 No 1{table QD Losartan Potassium-H Potassium-H 7-18 t} Potassium- CTZ CTZ 00:00: HCTZ 100-12.5 MG 100-12.5 MG 00 100-12.5 MG Losartan Losartan 2019-0 No 1{table QD Losartan Potassium-H Potassium-H 7-18 t} Potassium- CTZ CTZ 00:00: HCTZ 100-12.5 MG 100-12.5 MG 00 100-12.5 MG Losartan Losartan 2019-0 No 1{table QD Losartan Potassium-H Potassium-H 7-18 t} Potassium- CTZ CTZ 00:00: HCTZ 100-12.5 MG 100-12.5 MG 00 100-12.5 MG Losartan Losartan 2019-0 No 1{table QD Losartan Potassium-H Potassium-H 7-18 t} Potassium- CTZ CTZ 00:00: HCTZ 100-12.5 MG 100-12.5 MG 00 100-12.5 MG Losartan Losartan 2019-0 No 1{table QD Losartan Potassium-H Potassium-H 7-18 t} Potassium- CTZ CTZ 00:00: HCTZ 100-12.5 MG 100-12.5 MG 00 100-12.5 MG Losartan Losartan 2019-0 No 1{table QD Losartan Potassium-H Potassium-H 7-18 t} Potassium- CTZ CTZ 00:00: HCTZ 100-12.5 MG 100-12.5 MG 00 100-12.5 MG Losartan Losartan 2019-0 No 1{table QD Losartan Potassium-H Potassium-H 7-18 t} Potassium- CTZ CTZ 00:00: HCTZ 100-12.5 MG 100-12.5 MG 00 100-12.5 MG Losartan Losartan 2019-0 No 1{table QD Losartan Potassium-H Potassium-H 7-18 t} Potassium- CTZ CTZ 00:00: HCTZ 100-12.5 MG 100-12.5 MG 00 100-12.5 MG Losartan Losartan 2019-0 No 1{table QD Losartan Potassium-H Potassium-H 7-18 t} Potassium- CTZ CTZ 00:00: HCTZ 100-12.5 MG 100-12.5 MG 00 100-12.5 MG Losartan Losartan 2019-0 No 1{table QD Losartan Potassium-H Potassium-H 7-18 t} Potassium- CTZ CTZ 00:00: HCTZ 100-12.5 MG 100-12.5 MG 00 100-12.5 MG Losartan Losartan 2019-0 No 1{table QD Losartan Potassium-H Potassium-H 7-18 t} Potassium- CTZ CTZ 00:00: HCTZ 100-12.5 MG 100-12.5 MG 00 100-12.5 MG Losartan Losartan 2019-0 No 1{table QD Losartan Potassium-H Potassium-H 7-18 t} Potassium- CTZ CTZ 00:00: HCTZ 100-12.5 MG 100-12.5 MG 00 100-12.5 MG Losartan Losartan 2019-0 No 1{table QD Losartan Potassium-H Potassium-H 7-18 t} Potassium- CTZ CTZ 00:00: HCTZ 100-12.5 MG 100-12.5 MG 00 100-12.5 MG aspirin 81 2019-0 Yes 81mg Take 81 mg U nivers mg chewable 6-03 by mouth ity of tablet 09:28: daily. [address] dronedarone 2019-0 Yes 400mg Take 400 U nivers HCl (MULTAQ 6-03 mg by ity of ORAL) 09:28: mouth [address] [place] [address] [facility] Medical times [place] daily. metoprolol 2019-0 Yes 100mg Take 100 Un cecil tartrate 6-03 mg by ity of 100 mg 09:28: mouth 2 [place] tablet 23 (two) Medical times [place] daily. DULoxetine 2019-0 Yes 60mg Take 60 mg U nivers 60 mg 6-03 by mouth ity of capsule 09:28: daily. [address] rivaroxaban 2019-0 Yes 15mg Take 15 mg Univers (XARELTO) 6-03 by mouth ity of 10 mg 09:28: daily. [address] aspirin 81 2019-0 Yes 81mg Take 81 mg U nivers mg chewable 6-03 by mouth ity of tablet 09:28: daily. [address] dronedarone 2019-0 Yes 400mg Take 400 U nivers HCl (MULTAQ 6-03 mg by ity of ORAL) 09:28: mouth 2 [place] [address] ([facility]) Medical times [place] daily. metoprolol 2019-0 Yes 100mg Take 100 Un cecil tartrate 6-03 mg by ity of 100 mg 09:28: mouth 2 [place] tablet 23 (two) Medical times [place] daily. DULoxetine 2019-0 Yes 60mg Take 60 mg U nivers 60 mg 6-03 by mouth ity of capsule 09:28: daily. [address] rivaroxaban 2019-0 Yes 15mg Take 15 mg Univers (XARELTO) 6-03 by mouth ity of 10 mg 09:28: daily. [address] Neomycin-Po Neomycin-Po 2019-0 No 4{drops TID Neomycin-P lymyxin-HC lymyxin-HC - _into_a olymyxin-H 3.558515-0 3.504109-3 00:00: ffected C 00 _ear} 3.5- Augmentin Augmentin 2019-0 No 1{table BID Augmentin 875-125 MG 875-125 MG 4-12 t} 875-125 MG 00:00: 00 Neomycin-Po Neomycin-Po 2019-0 No 4{drops TID Neomycin-P lymyxin-HC lymyxin-HC 4-12 _into_a olymyxin-H 3.5-22170-3 3.5-57799-0 00:00: ffected C 00 _ear} 3.5-62077- 1 Augmentin Augmentin 2019-0 No 1{table BID Augmentin 875-125 MG 875-125 MG 4-12 t} 875-125 MG 00:00: 00 Augmentin Augmentin 2019-0 No 1{table BID Augmentin 875-125 MG 875-125 MG 4-12 t} 875-125 MG 00:00: 00 Neomycin-Po Neomycin-Po 2019-0 No 4{drops TID Neomycin-P lymyxin-HC lymyxin-HC 4-12 _into_a olymyxin-H 3.5-37711-5 3.5-72295-4 00:00: ffected C 00 _ear} 3.5-88695- 1 Augmentin Augmentin 2019-0 No 1{table BID Augmentin 875-125 MG 875-125 MG 4-12 t} 875-125 MG 00:00: 00 Neomycin-Po Neomycin-Po 2019-0 No 4{drops TID Neomycin-P lymyxin-HC lymyxin-HC 4-12 _into_a olymyxin-H 3.5-88151-3 3.5-87292-6 00:00: ffected C 00 _ear} 3.5-12321- 1 Neomycin-Po Neomycin-Po 2019-0 No 4{drops TID Neomycin-P lymyxin-HC lymyxin-HC 4-12 _into_a olymyxin-H 3.5-60769-0 3.5-47588-7 00:00: ffected C 00 _ear} 3.5-86478- 1 Augmentin Augmentin 2019-0 No 1{table BID Augmentin 875-125 MG 875-125 MG 4-12 t} 875-125 MG 00:00: 00 Neomycin-Po Neomycin-Po 2019-0 No 4{drops TID Neomycin-P lymyxin-HC lymyxin-HC 4-12 _into_a olymyxin-H 3.5-07890-6 3.5-95336-3 00:00: ffected C 00 _ear} 3.5-22240- 1 Augmentin Augmentin 2019-0 No 1{table BID Augmentin 875-125 MG 875-125 MG 4-12 t} 875-125 MG 00:00: 00 Augmentin Augmentin 2019-0 No 1{table BID Augmentin 875-125 MG 875-125 MG 4-12 t} 875-125 MG 00:00: 00 Neomycin-Po Neomycin-Po 2019-0 No 4{drops TID Neomycin-P lymyxin-HC lymyxin-HC 4-12 _into_a olymyxin-H 3.556474-7 3.544266-0 00:00: ffected C 00 _ear} 3.5-69229- 1 Augmentin Augmentin 2019-0 No 1{table BID Augmentin 875-125 MG 875-125 MG 4-12 t} 875-125 MG 00:00: 00 Neomycin-Po Neomycin-Po 2019-0 No 4{drops TID Neomycin-P lymyxin-HC lymyxin-HC 4-12 _into_a olymyxin-H 3.520151-6 3.5-63631-8 00:00: ffected C 00 _ear} 3.5-29478- 1 Augmentin Augmentin 2019-0 No 1{table BID Augmentin 875-125 MG 875-125 MG 4-12 t} 875-125 MG 00:00: 00 Neomycin-Po Neomycin-Po 2019-0 No 4{drops TID Neomycin-P lymyxin-HC lymyxin-HC 4-12 _into_a olymyxin-H 3.532718-7 3.595415-4 00:00: ffected C 00 _ear} 3.5-44840- 1 Augmentin Augmentin 2019-0 No 1{table BID Augmentin 875-125 MG 875-125 MG 4-12 t} 875-125 MG 00:00: 00 Neomycin-Po Neomycin-Po 2019-0 No 4{drops TID Neomycin-P lymyxin-HC lymyxin-HC 4-12 _into_a olymyxin-H 3.5-30380-4 3.5-63050-6 00:00: ffected C 00 _ear} 3.5-39855- 1 Neomycin-Po Neomycin-Po 2019-0 No 4{drops TID Neomycin-P lymyxin-HC lymyxin-HC 4-12 _into_a olymyxin-H 3.5-64903-8 3.5-91530-6 00:00: ffected C 00 _ear} 3.5-79964- 1 Augmentin Augmentin 2019-0 No 1{table BID Augmentin 875-125 MG 875-125 MG 4-12 t} 875-125 MG 00:00: 00 Neomycin-Po Neomycin-Po 2019-0 No 4{drops TID Neomycin-P lymyxin-HC lymyxin-HC 4-12 _into_a olymyxin-H 3.5-32150-5 3.5-07120-2 00:00: ffected C 00 _ear} 3.5-26427- 1 Augmentin Augmentin 2019-0 No 1{table BID Augmentin 875-125 MG 875-125 MG 4-12 t} 875-125 MG 00:00: 00 Augmentin Augmentin 2019-0 No 1{table BID Augmentin 875-125 MG 875-125 MG 4-12 t} 875-125 MG 00:00: 00 Neomycin-Po Neomycin-Po 2019-0 No 4{drops TID Neomycin-P lymyxin-HC lymyxin-HC 4-12 _into_a olymyxin-H 3.5-46098-9 3.5-19791-8 00:00: ffected C 00 _ear} 3.5-10720- 1 Neomycin-Po Neomycin-Po 2019-0 No 4{drops TID Neomycin-P lymyxin-HC lymyxin-HC 4-12 _into_a olymyxin-H 3.5-33628-8 3.5-78497-1 00:00: ffected C 00 _ear} 3.5-63207- 1 Augmentin Augmentin 2019-0 No 1{table BID Augmentin 875-125 MG 875-125 MG 4-12 t} 875-125 MG 00:00: 00 Neomycin-Po Neomycin-Po 2019-0 No 4{drops TID Neomycin-P lymyxin-HC lymyxin-HC 4-12 _into_a olymyxin-H 3.5-73733-1 3.5-17916-9 00:00: ffected C 00 _ear} 3.5-53837- 1 Augmentin Augmentin 2019-0 No 1{table BID Augmentin 875-125 MG 875-125 MG 4-12 t} 875-125 MG 00:00: 00 Augmentin Augmentin 2018- No 1{table BID Augmentin 875-125 MG 875-125 MG 4-12 t} 875-125 MG 00:00: 00 Neomycin-Po Neomycin-Po No 4{drops TID Neomycin-P lymyxin-HC lymyxin-HC 12 _into_a olymyxin-H 3.533031-8 3.503752-4 00:00: ffected C 00 _ear} 3.5- 1 methylPREDN 2016-08 Yes 84mg Take 21 Uni vers ISolone 1-02 tablets by ity of (MEDROL, 00:00: mouth [place] CATHIE,) 4 mg 00 SEE-INSTRU Med ical tablets CTIONS. Branch follow package directions methylPREDN 2016-08 Yes 84mg Take 21 Uni vers ISolone 1-02 tablets by ity of (MEDROL, 00:00: mouth [place] CATHIE,) 4 mg 00 SEE-INSTRU Med ical tablets CTIONS. Branch follow package directions losartan Yes 100mg Take 1 Tab Un cecil (COZAAR) 2-23 by mouth ity of 100 mg 00:00: daily. [place] tablet 00 Medical Branch losartan Yes 100mg Take 1 Tab Un cecil (COZAAR) 2-23 by mouth ity of 100 mg 00:00: daily. [place] tablet 00 Medical Branch Crestor Crestor Yes Na Justin 1 tablet Co [facility] valACYclovi valACYclovi No 1{table BID valACYclov r HCl 1 GM r HCl 1 GM t} ir HCl 1 GM Rosuvastati Rosuvastati No Rosuvastat n Calcium n Calcium in Calcium 10 MG 10 MG 10 MG Losartan Losartan No 1{table QD Losartan Potassium-H Potassium-H t} Potassium- CTZ 100-25 CTZ 100-25 HCTZ MG MG 100-25 MG Lidocaine 5 Lidocaine 5 No 1{appli TID Lidocaine % % cation_ 5 % to_affe cted_ar ea_as_n eeded} Sotalol HCl Sotalol HCl No 1{table BID Sotalol 80 MG 80 MG t} HCl 80 MG Gabapentin Gabapentin No Gabapentin 300 MG 300 MG 300 MG ZyrTEC ZyrTEC No 1{table QD ZyrTEC Allergy 10 Allergy 10 t} Allergy 10 MG MG MG traMADol traMADol No 1{table QID traMADol HCl 50 MG HCl 50 MG t_as_ne HCl 50 MG eded} Crestor 10 Crestor 10 No 1{table QD Crestor 10 MG MG t} MG ARIPiprazol ARIPiprazol No 1{table QD ARIPiprazo e 5 MG e 5 MG t} le 5 MG ARIPiprazol ARIPiprazol No 1{table QD ARIPiprazo e 5 MG e 5 MG t} le 5 MG ZyrTEC ZyrTEC No 1{table QD ZyrTEC Allergy 10 Allergy 10 t} Allergy 10 MG MG MG Xarelto 20 Xarelto 20 No 1{table QD Xarelto 20 MG MG t_with_ MG food} Aspir-81 81 Aspir-81 81 No 1{table QD Aspir-81 MG MG t} 81 MG Vitamin B12 Vitamin B12 No Vitamin B12 Centrum Centrum No Centrum Silver Silver Silver Sotalol HCl Sotalol HCl No 1{table BID Sotalol 80 MG 80 MG t} HCl 80 MG Losartan Losartan No 1{table QD Losartan Potassium-H Potassium-H t} Potassium- CTZ 100-25 CTZ 100-25 HCTZ MG MG 100-25 MG traMADol traMADol No 1{table QID traMADol HCl 50 MG HCl 50 MG t_as_ne HCl 50 MG eded} Multivitami Multivitami No Multivitam n - n - in - Losartan Losartan No 1{table QD Losartan Potassium-H Potassium-H t} Potassium- CTZ 100-25 CTZ 100-25 HCTZ MG MG 100-25 MG DULoxetine DULoxetine No 1{capsu QD DULoxetine HCl 60 MG HCl 60 MG le} HCl 60 MG DULoxetine DULoxetine No 1{capsu QD DULoxetine HCl 60 MG HCl 60 MG le} HCl 60 MG Losartan Losartan No 1{table QD Losartan Potassium Potassium t} Potassium 100 MG 100 MG 100 MG Losartan Losartan No 1{table QD Losartan Potassium Potassium t} Potassium 100 MG 100 MG 100 MG ARIPiprazol ARIPiprazol No 1{table QD ARIPiprazo e 5 MG e 5 MG t} le 5 MG DULoxetine DULoxetine No 1{capsu QD DULoxetine HCl 60 MG HCl 60 MG le} HCl 60 MG Centrum Centrum No Centrum Silver Silver Silver Losartan Losartan No 1{table QD Losartan Potassium-H Potassium-H t} Potassium- CTZ 100-25 CTZ 100-25 HCTZ MG MG 100-25 MG Crestor 10 Crestor 10 No 1{table QD Crestor 10 MG MG t} MG Crestor 10 Crestor 10 No 1{table QD Crestor 10 MG MG t} MG ARIPiprazol ARIPiprazol No 1{table QD ARIPiprazo e 5 MG e 5 MG t} le 5 MG Losartan Losartan No 1{table QD Losartan Potassium-H Potassium-H t} Potassium- CTZ 100-25 CTZ 100-25 HCTZ MG MG 100-25 MG Aspir-81 81 Aspir-81 81 No 1{table QD Aspir-81 MG MG t} 81 MG ZyrTEC ZyrTEC No 1{table QD ZyrTEC Allergy 10 Allergy 10 t} Allergy 10 MG MG MG Multivitami Multivitami No Multivitam n - n - in - traMADol traMADol No 1{table QID traMADol HCl 50 MG HCl 50 MG t_as_ne HCl 50 MG eded} DULoxetine DULoxetine No 1{capsu QD DULoxetine HCl 60 MG HCl 60 MG le} HCl 60 MG Xarelto 20 Xarelto 20 No 1{table QD Xarelto 20 MG MG t_with_ MG food} Vitamin B12 Vitamin B12 No Vitamin B12 Sotalol HCl Sotalol HCl No 1{table BID Sotalol 80 MG 80 MG t} HCl 80 MG Losartan Losartan No 1{table QD Losartan Potassium Potassium t} Potassium 100 MG 100 MG 100 MG Losartan Losartan No 1{table QD Losartan Potassium-H Potassium-H t} Potassium- CTZ 100-25 CTZ 100-25 HCTZ MG MG 100-25 MG ARIPiprazol ARIPiprazol No 1{table QD ARIPiprazo e 5 MG e 5 MG t} le 5 MG Centrum Centrum No Centrum Silver Silver Silver Crestor 10 Crestor 10 No 1{table QD Crestor 10 MG MG t} MG DULoxetine DULoxetine No 1{capsu QD DULoxetine HCl 60 MG HCl 60 MG le} HCl 60 MG Crestor 10 Crestor 10 No 1{table QD Crestor 10 MG MG t} MG ARIPiprazol ARIPiprazol No 1{table QD ARIPiprazo e 5 MG e 5 MG t} le 5 MG Losartan Losartan No 1{table QD Losartan Potassium-H Potassium-H t} Potassium- CTZ 100-25 CTZ 100-25 HCTZ MG MG 100-25 MG Aspir-81 81 Aspir-81 81 No 1{table QD Aspir-81 MG MG t} 81 MG ZyrTEC ZyrTEC No 1{table QD ZyrTEC Allergy 10 Allergy 10 t} Allergy 10 MG MG MG traMADol traMADol No 1{table QID traMADol HCl 50 MG HCl 50 MG t_as_ne HCl 50 MG eded} Multivitami Multivitami No Multivitam n - n - in - Xarelto 20 Xarelto 20 No 1{table QD Xarelto 20 MG MG t_with_ MG food} Vitamin B12 Vitamin B12 No Vitamin B12 Sotalol HCl Sotalol HCl No 1{table BID Sotalol 80 MG 80 MG t} HCl 80 MG Aspir-81 81 Aspir-81 81 No 1{table QD Aspir-81 MG MG t} 81 MG Losartan Losartan No 1{table QD Losartan Potassium-H Potassium-H t} Potassium- CTZ 100-25 CTZ 100-25 HCTZ MG MG 100-25 MG Sotalol HCl Sotalol HCl No 1{table BID Sotalol 80 MG 80 MG t} HCl 80 MG Crestor 10 Crestor 10 No 1{table QD Crestor 10 MG MG t} MG ARIPiprazol ARIPiprazol No 1{table QD ARIPiprazo e 5 MG e 5 MG t} le 5 MG ZyrTEC ZyrTEC No 1{table QD ZyrTEC Allergy 10 Allergy 10 t} Allergy 10 MG MG MG Crestor 10 Crestor 10 No 1{table QD Crestor 10 MG MG t} MG Losartan Losartan No 1{table QD Losartan Potassium Potassium t} Potassium 100 MG 100 MG 100 MG Xarelto 20 Xarelto 20 No 1{table QD Xarelto 20 MG MG t_with_ MG food} DULoxetine DULoxetine No 1{capsu QD DULoxetine HCl 60 MG HCl 60 MG le} HCl 60 MG Multivitami Multivitami No Multivitam n - n - in - Losartan Losartan No 1{table QD Losartan Potassium-H Potassium-H t} Potassium- CTZ 100-25 CTZ 100-25 HCTZ MG MG 100-25 MG ARIPiprazol ARIPiprazol No 1{table QD ARIPiprazo e 5 MG e 5 MG t} le 5 MG Centrum Centrum No Centrum Silver Silver Silver DULoxetine DULoxetine No 1{capsu QD DULoxetine HCl 60 MG HCl 60 MG le} HCl 60 MG traMADol traMADol No 1{table QID traMADol HCl 50 MG HCl 50 MG t_as_ne HCl 50 MG eded} Vitamin B12 Vitamin B12 No Vitamin B12 Aspir-81 81 Aspir-81 81 No 1{table QD Aspir-81 MG MG t} 81 MG Losartan Losartan No 1{table QD Losartan Potassium-H Potassium-H t} Potassium- CTZ 100-25 CTZ 100-25 HCTZ MG MG 100-25 MG Sotalol HCl Sotalol HCl No 1{table BID Sotalol 80 MG 80 MG t} HCl 80 MG Crestor 10 Crestor 10 No 1{table QD Crestor 10 MG MG t} MG ARIPiprazol ARIPiprazol No 1{table QD ARIPiprazo e 5 MG e 5 MG t} le 5 MG ZyrTEC ZyrTEC No 1{table QD ZyrTEC Allergy 10 Allergy 10 t} Allergy 10 MG MG MG Crestor 10 Crestor 10 No 1{table QD Crestor 10 MG MG t} MG Losartan Losartan No 1{table QD Losartan Potassium Potassium t} Potassium 100 MG 100 MG 100 MG Xarelto 20 Xarelto 20 No 1{table QD Xarelto 20 MG MG t_with_ MG food} DULoxetine DULoxetine No 1{capsu QD DULoxetine HCl 60 MG HCl 60 MG le} HCl 60 MG Multivitami Multivitami No Multivitam n - n - in - Losartan Losartan No 1{table QD Losartan Potassium-H Potassium-H t} Potassium- CTZ 100-25 CTZ 100-25 HCTZ MG MG 100-25 MG ARIPiprazol ARIPiprazol No 1{table QD ARIPiprazo e 5 MG e 5 MG t} le 5 MG Centrum Centrum No Centrum Silver Silver Silver DULoxetine DULoxetine No 1{capsu QD DULoxetine HCl 60 MG HCl 60 MG le} HCl 60 MG traMADol traMADol No 1{table QID traMADol HCl 50 MG HCl 50 MG t_as_ne HCl 50 MG eded} Vitamin B12 Vitamin B12 No Vitamin B12 Losartan Losartan No 1{table QD Losartan Potassium Potassium t} Potassium 100 MG 100 MG 100 MG Xarelto 20 Xarelto 20 No 1{table QD Xarelto 20 MG MG t_with_ MG food} ZyrTEC ZyrTEC No 1{table QD ZyrTEC Allergy 10 Allergy 10 t} Allergy 10 MG MG MG Losartan Losartan No 1{table QD Losartan Potassium-H Potassium-H t} Potassium- CTZ 100-25 CTZ 100-25 HCTZ MG MG 100-25 MG Centrum Centrum No Centrum Silver Silver Silver Crestor 10 Crestor 10 No 1{table QD Crestor 10 MG MG t} MG DULoxetine DULoxetine No 1{capsu QD DULoxetine HCl 60 MG HCl 60 MG le} HCl 60 MG Losartan Losartan No 1{table QD Losartan Potassium-H Potassium-H t} Potassium- CTZ 100-25 CTZ 100-25 HCTZ MG MG 100-25 MG DULoxetine DULoxetine No 1{capsu QD DULoxetine HCl 60 MG HCl 60 MG le} HCl 60 MG Lidocaine 5 Lidocaine 5 No 1{appli TID Lidocaine % % cation_ 5 % to_affe cted_ar ea_as_n eeded} Crestor 10 Crestor 10 No 1{table QD Crestor 10 MG MG t} MG ARIPiprazol ARIPiprazol No 1{table QD ARIPiprazo e 5 MG e 5 MG t} le 5 MG Multivitami Multivitami No Multivitam n - n - in - ARIPiprazol ARIPiprazol No 1{table QD ARIPiprazo e 5 MG e 5 MG t} le 5 MG Metoprolol Metoprolol No 1{table QD Metoprolol Succinate Succinate t} Succinate ER 25 MG ER 25 MG ER 25 MG Losartan Losartan No 1{table QD Losartan Potassium-H Potassium-H t} Potassium- CTZ 100-25 CTZ 100-25 HCTZ MG MG 100-25 MG Gabapentin Gabapentin No QD Gabapentin 300 MG 300 MG 300 MG Sotalol HCl Sotalol HCl No 1{table BID Sotalol 80 MG 80 MG t} HCl 80 MG valACYclovi valACYclovi No 1{table BID valACYclov r HCl 1 GM r HCl 1 GM t} ir HCl 1 GM Vitamin B12 Vitamin B12 No Vitamin B12 traMADol traMADol No 1{table QID traMADol HCl 50 MG HCl 50 MG t_as_ne HCl 50 MG eded} Aspir-81 81 Aspir-81 81 No 1{table QD Aspir-81 MG MG t} 81 MG Losartan Losartan No 1{table QD Losartan Potassium Potassium t} Potassium 100 MG 100 MG 100 MG Xarelto 20 Xarelto 20 No 1{table QD Xarelto 20 MG MG t_with_ MG food} ZyrTEC ZyrTEC No 1{table QD ZyrTEC Allergy 10 Allergy 10 t} Allergy 10 MG MG MG Losartan Losartan No 1{table QD Losartan Potassium-H Potassium-H t} Potassium- CTZ 100-25 CTZ 100-25 HCTZ MG MG 100-25 MG Centrum Centrum No Centrum Silver Silver Silver Crestor 10 Crestor 10 No 1{table QD Crestor 10 MG MG t} MG DULoxetine DULoxetine No 1{capsu QD DULoxetine HCl 60 MG HCl 60 MG le} HCl 60 MG Losartan Losartan No 1{table QD Losartan Potassium-H Potassium-H t} Potassium- CTZ 100-25 CTZ 100-25 HCTZ MG MG 100-25 MG DULoxetine DULoxetine No 1{capsu QD DULoxetine HCl 60 MG HCl 60 MG le} HCl 60 MG Lidocaine 5 Lidocaine 5 No 1{appli TID Lidocaine % % cation_ 5 % to_affe cted_ar ea_as_n eeded} Crestor 10 Crestor 10 No 1{table QD Crestor 10 MG MG t} MG ARIPiprazol ARIPiprazol No 1{table QD ARIPiprazo e 5 MG e 5 MG t} le 5 MG Multivitami Multivitami No Multivitam n - n - in - ARIPiprazol ARIPiprazol No 1{table QD ARIPiprazo e 5 MG e 5 MG t} le 5 MG Metoprolol Metoprolol No 1{table QD Metoprolol Succinate Succinate t} Succinate ER 25 MG ER 25 MG ER 25 MG Losartan Losartan No 1{table QD Losartan Potassium-H Potassium-H t} Potassium- CTZ 100-25 CTZ 100-25 HCTZ MG MG 100-25 MG Gabapentin Gabapentin No QD Gabapentin 300 MG 300 MG 300 MG Sotalol HCl Sotalol HCl No 1{table BID Sotalol 80 MG 80 MG t} HCl 80 MG valACYclovi valACYclovi No 1{table BID valACYclov r HCl 1 GM r HCl 1 GM t} ir HCl 1 GM Vitamin B12 Vitamin B12 No Vitamin B12 traMADol traMADol No 1{table QID traMADol HCl 50 MG HCl 50 MG t_as_ne HCl 50 MG eded} Aspir-81 81 Aspir-81 81 No 1{table QD Aspir-81 MG MG t} 81 MG DULoxetine DULoxetine No 1{capsu QD DULoxetine HCl 60 MG HCl 60 MG le} HCl 60 MG Losartan Losartan No 1{table QD Losartan Potassium Potassium t} Potassium 100 MG 100 MG 100 MG Xarelto 20 Xarelto 20 No 1{table QD Xarelto 20 MG MG t_with_ MG food} Losartan Losartan No 1{table QD Losartan Potassium-H Potassium-H t} Potassium- CTZ 100-25 CTZ 100-25 HCTZ MG MG 100-25 MG Gabapentin Gabapentin No QD Gabapentin 300 MG 300 MG 300 MG Centrum Centrum No Centrum Silver Silver Silver Crestor 10 Crestor 10 No 1{table QD Crestor 10 MG MG t} MG Metoprolol Metoprolol No 1{table QD Metoprolol Succinate Succinate t} Succinate ER 25 MG ER 25 MG ER 25 MG ARIPiprazol ARIPiprazol No 1{table QD ARIPiprazo e 5 MG e 5 MG t} le 5 MG Lidocaine 5 Lidocaine 5 No 1{appli TID Lidocaine % % cation_ 5 % to_affe cted_ar ea_as_n eeded} Sotalol HCl Sotalol HCl No 1{table BID Sotalol 80 MG 80 MG t} HCl 80 MG Losartan Losartan No 1{table QD Losartan Potassium-H Potassium-H t} Potassium- CTZ 100-25 CTZ 100-25 HCTZ MG MG 100-25 MG valACYclovi valACYclovi No 1{table BID valACYclov r HCl 1 GM r HCl 1 GM t} ir HCl 1 GM Crestor 10 Crestor 10 No 1{table QD Crestor 10 MG MG t} MG ARIPiprazol ARIPiprazol No 1{table QD ARIPiprazo e 5 MG e 5 MG t} le 5 MG Losartan Losartan No 1{table QD Losartan Potassium-H Potassium-H t} Potassium- CTZ 100-25 CTZ 100-25 HCTZ MG MG 100-25 MG Multivitami Multivitami No Multivitam n - n - in - ZyrTEC ZyrTEC No 1{table QD ZyrTEC Allergy 10 Allergy 10 t} Allergy 10 MG MG MG DULoxetine DULoxetine No 1{capsu QD DULoxetine HCl 60 MG HCl 60 MG le} HCl 60 MG Vitamin B12 Vitamin B12 No Vitamin B12 traMADol traMADol No 1{table QID traMADol HCl 50 MG HCl 50 MG t_as_ne HCl 50 MG eded} Aspir-81 81 Aspir-81 81 No 1{table QD Aspir-81 MG MG t} 81 MG ZyrTEC ZyrTEC No 1{table QD ZyrTEC Allergy 10 Allergy 10 t} Allergy 10 MG MG MG Aspir-81 81 Aspir-81 81 No 1{table QD Aspir-81 MG MG t} 81 MG Losartan Losartan No 1{table QD Losartan Potassium-H Potassium-H t} Potassium- CTZ 100-25 CTZ 100-25 HCTZ MG MG 100-25 MG Sotalol HCl Sotalol HCl No 1{table BID Sotalol 80 MG 80 MG t} HCl 80 MG Metoprolol Metoprolol No 1{table QD Metoprolol Succinate Succinate t} Succinate ER 25 MG ER 25 MG ER 25 MG traMADol traMADol No 1{table QID traMADol HCl 50 MG HCl 50 MG t_as_ne HCl 50 MG eded} Multivitami Multivitami No Multivitam n - n - in - valACYclovi valACYclovi No 1{table BID valACYclov r HCl 1 GM r HCl 1 GM t} ir HCl 1 GM Losartan Losartan No 1{table QD Losartan Potassium-H Potassium-H t} Potassium- CTZ 100-25 CTZ 100-25 HCTZ MG MG 100-25 MG Crestor 10 Crestor 10 No 1{table QD Crestor 10 MG MG t} MG ARIPiprazol ARIPiprazol No 1{table QD ARIPiprazo e 5 MG e 5 MG t} le 5 MG Gabapentin Gabapentin No 1{table Gabapentin 600 MG 600 MG t} 600 MG Losartan Losartan No 1{table QD Losartan Potassium Potassium t} Potassium 100 MG 100 MG 100 MG DULoxetine DULoxetine No 1{capsu QD DULoxetine HCl 60 MG HCl 60 MG le} HCl 60 MG Crestor 10 Crestor 10 No 1{table QD Crestor 10 MG MG t} MG Lidocaine 5 Lidocaine 5 No 1{appli TID Lidocaine % % cation_ 5 % to_affe cted_ar ea_as_n eeded} DULoxetine DULoxetine No 1{capsu QD DULoxetine HCl 60 MG HCl 60 MG le} HCl 60 MG Gabapentin Gabapentin No Gabapentin 300 MG 300 MG 300 MG Losartan Losartan No 1{table QD Losartan Potassium-H Potassium-H t} Potassium- CTZ 100-25 CTZ 100-25 HCTZ MG MG 100-25 MG Vitamin B12 Vitamin B12 No Vitamin B12 Centrum Centrum No Centrum Silver Silver Silver Xarelto 20 Xarelto 20 No 1{table QD Xarelto 20 MG MG t_with_ MG food} ARIPiprazol ARIPiprazol No 1{table QD ARIPiprazo e 5 MG e 5 MG t} le 5 MG DULoxetine DULoxetine No 1{capsu QD DULoxetine HCl 60 MG HCl 60 MG le} HCl 60 MG Lidocaine 5 Lidocaine 5 No 1{appli TID Lidocaine % % cation_ 5 % to_affe cted_ar ea_as_n eeded} Gabapentin Gabapentin No Gabapentin 300 MG 300 MG 300 MG ARIPiprazol ARIPiprazol No 1{table QD ARIPiprazo e 5 MG e 5 MG t} le 5 MG Metoprolol Metoprolol No 1{table QD Metoprolol Succinate Succinate t} Succinate ER 25 MG ER 25 MG ER 25 MG Crestor 10 Crestor 10 No 1{table QD Crestor 10 MG MG t} MG valACYclovi valACYclovi No 1{table BID valACYclov r HCl 1 GM r HCl 1 GM t} ir HCl 1 GM Losartan Losartan No 1{table QD Losartan Potassium-H Potassium-H t} Potassium- CTZ 100-25 CTZ 100-25 HCTZ MG MG 100-25 MG Multivitami Multivitami No Multivitam n - n - in - ZyrTEC ZyrTEC No 1{table QD ZyrTEC Allergy 10 Allergy 10 t} Allergy 10 MG MG MG traMADol traMADol No 1{table QID traMADol HCl 50 MG HCl 50 MG t_as_ne HCl 50 MG eded} Losartan Losartan No 1{table QD Losartan Potassium-H Potassium-H t} Potassium- CTZ 100-25 CTZ 100-25 HCTZ MG MG 100-25 MG Vitamin B12 Vitamin B12 No Vitamin B12 Sotalol HCl Sotalol HCl No 1{table BID Sotalol 80 MG 80 MG t} HCl 80 MG Centrum Centrum No Centrum Silver Silver Silver Gabapentin Gabapentin No 1{table Gabapentin 600 MG 600 MG t} 600 MG Aspir-81 81 Aspir-81 81 No 1{table QD Aspir-81 MG MG t} 81 MG Losartan Losartan No 1{table QD Losartan Potassium Potassium t} Potassium 100 MG 100 MG 100 MG ARIPiprazol ARIPiprazol No 1{table QD ARIPiprazo e 5 MG e 5 MG t} le 5 MG DULoxetine DULoxetine No 1{capsu QD DULoxetine HCl 60 MG HCl 60 MG le} HCl 60 MG Crestor 10 Crestor 10 No 1{table QD Crestor 10 MG MG t} MG Xarelto 20 Xarelto 20 No 1{table QD Xarelto 20 MG MG t_with_ MG food} Losartan Losartan No 1{table QD Losartan Potassium-H Potassium-H t} Potassium- CTZ 100-25 CTZ 100-25 HCTZ MG MG 100-25 MG DULoxetine DULoxetine No 1{capsu QD DULoxetine HCl 60 MG HCl 60 MG le} HCl 60 MG Lidocaine 5 Lidocaine 5 No 1{appli TID Lidocaine % % cation_ 5 % to_affe cted_ar ea_as_n eeded} Gabapentin Gabapentin No Gabapentin 300 MG 300 MG 300 MG ARIPiprazol ARIPiprazol No 1{table QD ARIPiprazo e 5 MG e 5 MG t} le 5 MG Metoprolol Metoprolol No 1{table QD Metoprolol Succinate Succinate t} Succinate ER 25 MG ER 25 MG ER 25 MG Crestor 10 Crestor 10 No 1{table QD Crestor 10 MG MG t} MG valACYclovi valACYclovi No 1{table BID valACYclov r HCl 1 GM r HCl 1 GM t} ir HCl 1 GM Losartan Losartan No 1{table QD Losartan Potassium-H Potassium-H t} Potassium- CTZ 100-25 CTZ 100-25 HCTZ MG MG 100-25 MG Multivitami Multivitami No Multivitam n - n - in - ZyrTEC ZyrTEC No 1{table QD ZyrTEC Allergy 10 Allergy 10 t} Allergy 10 MG MG MG traMADol traMADol No 1{table QID traMADol HCl 50 MG HCl 50 MG t_as_ne HCl 50 MG eded} Losartan Losartan No 1{table QD Losartan Potassium-H Potassium-H t} Potassium- CTZ 100-25 CTZ 100-25 HCTZ MG MG 100-25 MG Vitamin B12 Vitamin B12 No Vitamin B12 Sotalol HCl Sotalol HCl No 1{table BID Sotalol 80 MG 80 MG t} HCl 80 MG Centrum Centrum No Centrum Silver Silver Silver Gabapentin Gabapentin No 1{table Gabapentin 600 MG 600 MG t} 600 MG Aspir-81 81 Aspir-81 81 No 1{table QD Aspir-81 MG MG t} 81 MG Losartan Losartan No 1{table QD Losartan Potassium Potassium t} Potassium 100 MG 100 MG 100 MG ARIPiprazol ARIPiprazol No 1{table QD ARIPiprazo e 5 MG e 5 MG t} le 5 MG DULoxetine DULoxetine No 1{capsu QD DULoxetine HCl 60 MG HCl 60 MG le} HCl 60 MG Crestor 10 Crestor 10 No 1{table QD Crestor 10 MG MG t} MG Xarelto 20 Xarelto 20 No 1{table QD Xarelto 20 MG MG t_with_ MG food} Losartan Losartan No 1{table QD Losartan Potassium-H Potassium-H t} Potassium- CTZ 100-25 CTZ 100-25 HCTZ MG MG 100-25 MG DULoxetine DULoxetine No 1{capsu QD DULoxetine HCl 60 MG HCl 60 MG le} HCl 60 MG Lidocaine 5 Lidocaine 5 No 1{appli TID Lidocaine % % cation_ 5 % to_affe cted_ar ea_as_n eeded} Gabapentin Gabapentin No Gabapentin 300 MG 300 MG 300 MG ARIPiprazol ARIPiprazol No 1{table QD ARIPiprazo e 5 MG e 5 MG t} le 5 MG Metoprolol Metoprolol No 1{table QD Metoprolol Succinate Succinate t} Succinate ER 25 MG ER 25 MG ER 25 MG Crestor 10 Crestor 10 No 1{table QD Crestor 10 MG MG t} MG valACYclovi valACYclovi No 1{table BID valACYclov r HCl 1 GM r HCl 1 GM t} ir HCl 1 GM Losartan Losartan No 1{table QD Losartan Potassium-H Potassium-H t} Potassium- CTZ 100-25 CTZ 100-25 HCTZ MG MG 100-25 MG Multivitami Multivitami No Multivitam n - n - in - Sotalol HCl Sotalol HCl No 1{table BID Sotalol 80 MG 80 MG t} HCl 80 MG ZyrTEC ZyrTEC No 1{table QD ZyrTEC Allergy 10 Allergy 10 t} Allergy 10 MG MG MG Aspir-81 81 Aspir-81 81 No 1{table QD Aspir-81 MG MG t} 81 MG Vitamin B12 Vitamin B12 No Vitamin B12 ARIPiprazol ARIPiprazol No 1{table QD ARIPiprazo e 5 MG e 5 MG t} le 5 MG Centrum Centrum No Centrum Silver Silver Silver Gabapentin Gabapentin No 1{table Gabapentin 600 MG 600 MG t} 600 MG Losartan Losartan No 1{table QD Losartan Potassium Potassium t} Potassium 100 MG 100 MG 100 MG traMADol traMADol No 1{table QID traMADol HCl 50 MG HCl 50 MG t_as_ne HCl 50 MG eded} Losartan Losartan No 1{table QD Losartan Potassium-H Potassium-H t} Potassium- CTZ 100-25 CTZ 100-25 HCTZ MG MG 100-25 MG DULoxetine DULoxetine No 1{capsu QD DULoxetine HCl 60 MG HCl 60 MG le} HCl 60 MG Crestor 10 Crestor 10 No 1{table QD Crestor 10 MG MG t} MG Xarelto 20 Xarelto 20 No 1{table QD Xarelto 20 MG MG t_with_ MG food} Losartan Losartan No 1{table QD Losartan Potassium-H Potassium-H t} Potassium- CTZ 100-25 CTZ 100-25 HCTZ MG MG 100-25 MG Vitamin B12 Vitamin B12 No Vitamin B12 ARIPiprazol ARIPiprazol No 1{table QD ARIPiprazo e 5 MG e 5 MG t} le 5 MG Centrum Centrum No Centrum Silver Silver Silver DULoxetine DULoxetine No 1{capsu QD DULoxetine HCl 60 MG HCl 60 MG le} HCl 60 MG Losartan Losartan No 1{table QD Losartan Potassium-H Potassium-H t} Potassium- CTZ 100-25 CTZ 100-25 HCTZ MG MG 100-25 MG Multivitami Multivitami No Multivitam n - n - in - Crestor 10 Crestor 10 No 1{table QD Crestor 10 MG MG t} MG Gabapentin Gabapentin No 1{table Gabapentin 600 MG 600 MG t} 600 MG Crestor 10 Crestor 10 No 1{table QD Crestor 10 MG MG t} MG Aspir-81 81 Aspir-81 81 No 1{table QD Aspir-81 MG MG t} 81 MG Xarelto 20 Xarelto 20 No 1{table QD Xarelto 20 MG MG t_with_ MG food} Losartan Losartan No 1{table QD Losartan Potassium Potassium t} Potassium 100 MG 100 MG 100 MG Metoprolol Metoprolol No 1{table QD Metoprolol Succinate Succinate t} Succinate ER 25 MG ER 25 MG ER 25 MG DULoxetine DULoxetine No DULoxetine HCl 60 MG HCl 60 MG HCl 60 MG Losartan Losartan No 1{table QD Losartan Potassium-H Potassium-H t} Potassium- CTZ 100-25 CTZ 100-25 HCTZ MG MG 100-25 MG valACYclovi valACYclovi No 1{table BID valACYclov r HCl 1 GM r HCl 1 GM t} ir HCl 1 GM Rosuvastati Rosuvastati No Rosuvastat n Calcium n Calcium in Calcium 10 MG 10 MG 10 MG Losartan Losartan No 1{table QD Losartan Potassium-H Potassium-H t} Potassium- CTZ 100-25 CTZ 100-25 HCTZ MG MG 100-25 MG Lidocaine 5 Lidocaine 5 No 1{appli TID Lidocaine % % cation_ 5 % to_affe cted_ar ea_as_n eeded} Sotalol HCl Sotalol HCl No 1{table BID Sotalol 80 MG 80 MG t} HCl 80 MG Gabapentin Gabapentin No Gabapentin 300 MG 300 MG 300 MG ZyrTEC ZyrTEC No 1{table QD ZyrTEC Allergy 10 Allergy 10 t} Allergy 10 MG MG MG traMADol traMADol No 1{table QID traMADol HCl 50 MG HCl 50 MG t_as_ne HCl 50 MG eded} Rosuvastati Rosuvastati No Rosuvastat n Calcium n Calcium in Calcium 10 MG 10 MG 10 MG Losartan Losartan No 1{table QD Losartan Potassium-H Potassium-H t} Potassium- CTZ 100-25 CTZ 100-25 HCTZ MG MG 100-25 MG Aspir-81 81 Aspir-81 81 No 1{table QD Aspir-81 MG MG t} 81 MG Crestor 10 Crestor 10 No 1{table QD Crestor 10 MG MG t} MG Vitamin B12 Vitamin B12 No Vitamin B12 Losartan Losartan No 1{table QD Losartan Potassium Potassium t} Potassium 100 MG 100 MG 100 MG Centrum Centrum No Centrum Silver Silver Silver Xarelto 20 Xarelto 20 No 1{table QD Xarelto 20 MG MG t_with_ MG food} Losartan Losartan No 1{table QD Losartan Potassium-H Potassium-H t} Potassium- CTZ 100-25 CTZ 100-25 HCTZ MG MG 100-25 MG DULoxetine DULoxetine No 1{capsu QD DULoxetine HCl 60 MG HCl 60 MG le} HCl 60 MG ARIPiprazol ARIPiprazol No 1{table QD ARIPiprazo e 5 MG e 5 MG t} le 5 MG Losartan Losartan No 1{table QD Losartan Potassium-H Potassium-H t} Potassium- CTZ 100-25 CTZ 100-25 HCTZ MG MG 100-25 MG Gabapentin Gabapentin No Gabapentin 300 MG 300 MG 300 MG traMADol traMADol No 1{table QID traMADol HCl 50 MG HCl 50 MG t_as_ne HCl 50 MG eded} Multivitami Multivitami No Multivitam n - n - in - DULoxetine DULoxetine No DULoxetine HCl 60 MG HCl 60 MG HCl 60 MG Crestor 10 Crestor 10 No 1{table QD Crestor 10 MG MG t} MG Gabapentin Gabapentin No 1{table Gabapentin 600 MG 600 MG t} 600 MG Lidocaine 5 Lidocaine 5 No 1{appli TID Lidocaine % % cation_ 5 % to_affe cted_ar ea_as_n eeded} Metoprolol Metoprolol No 1{table QD Metoprolol Succinate Succinate t} Succinate ER 25 MG ER 25 MG ER 25 MG valACYclovi valACYclovi No 1{table BID valACYclov r HCl 1 GM r HCl 1 GM t} ir HCl 1 GM ZyrTEC ZyrTEC No 1{table QD ZyrTEC Allergy 10 Allergy 10 t} Allergy 10 MG MG MG Sotalol HCl Sotalol HCl No 1{table BID Sotalol 80 MG 80 MG t} HCl 80 MG Aspir-81 81 Aspir-81 81 No 1{table QD Aspir-81 MG MG t} 81 MG Crestor 10 Crestor 10 No 1{table QD Crestor 10 MG MG t} MG Vitamin B12 Vitamin B12 No Vitamin B12 Losartan Losartan No 1{table QD Losartan Potassium Potassium t} Potassium 100 MG 100 MG 100 MG Multivitami Multivitami No Multivitam n - n - in - Centrum Centrum No Centrum Silver Silver Silver Losartan Losartan No Losartan Potassium-H Potassium-H Potassium- CTZ 100-25 CTZ 100-25 HCTZ MG MG 100-25 MG traMADol traMADol No 1{table QID traMADol HCl 50 MG HCl 50 MG t_as_ne HCl 50 MG eded} Xarelto 20 Xarelto 20 No 1{table QD Xarelto 20 MG MG t_with_ MG food} DULoxetine DULoxetine No 1{capsu QD DULoxetine HCl 60 MG HCl 60 MG le} HCl 60 MG Gabapentin Gabapentin No Gabapentin 300 MG 300 MG 300 MG ARIPiprazol ARIPiprazol No 1{table QD ARIPiprazo e 5 MG e 5 MG t} le 5 MG DULoxetine DULoxetine No DULoxetine HCl 60 MG HCl 60 MG HCl 60 MG Rosuvastati Rosuvastati No Rosuvastat n Calcium n Calcium in Calcium 10 MG 10 MG 10 MG Crestor 10 Crestor 10 No 1{table QD Crestor 10 MG MG t} MG Gabapentin Gabapentin No 1{table Gabapentin 600 MG 600 MG t} 600 MG Lidocaine 5 Lidocaine 5 No 1{appli TID Lidocaine % % cation_ 5 % to_affe cted_ar ea_as_n eeded} Metoprolol Metoprolol No 1{table QD Metoprolol Succinate Succinate t} Succinate ER 25 MG ER 25 MG ER 25 MG valACYclovi valACYclovi No 1{table BID valACYclov r HCl 1 GM r HCl 1 GM t} ir HCl 1 GM ZyrTEC ZyrTEC No 1{table QD ZyrTEC Allergy 10 Allergy 10 t} Allergy 10 MG MG MG Sotalol HCl Sotalol HCl No 1{table BID Sotalol 80 MG 80 MG t} HCl 80 MG Losartan Losartan No 1{table QD Losartan Potassium-H Potassium-H t} Potassium- CTZ 100-25 CTZ 100-25 HCTZ MG MG 100-25 MG Metoprolol Metoprolol No 1{table BID Metoprolol Tartrate 25 Tartrate 25 t_with_ Tartrate MG MG food} 25 MG PreserVisio PreserVisio No PreserVisi n AREDS 2 - n AREDS 2 - on AREDS 2 - Pantoprazol Pantoprazol No 1{table QD Pantoprazo e Sodium 40 e Sodium 40 t} le Sodium MG MG 40 MG Xarelto 20 Xarelto 20 No 1{table QD Xarelto 20 MG MG t_with_ MG food} Crestor 10 Crestor 10 No 1{table QD Crestor 10 MG MG t} MG DULoxetine DULoxetine No DULoxetine HCl 60 MG HCl 60 MG HCl 60 MG Losartan Losartan No 1{table QD Losartan Potassium-H Potassium-H t} Potassium- CTZ 100-25 CTZ 100-25 HCTZ MG MG 100-25 MG Metoprolol Metoprolol No 1{table BID Metoprolol Tartrate 25 Tartrate 25 t_with_ Tartrate MG MG food} 25 MG PreserVisio PreserVisio No PreserVisi n AREDS 2 - n AREDS 2 - on AREDS 2 - Pantoprazol Pantoprazol No 1{table QD Pantoprazo e Sodium 40 e Sodium 40 t} le Sodium MG MG 40 MG Xarelto 20 Xarelto 20 No 1{table QD Xarelto 20 MG MG t_with_ MG food} Crestor 10 Crestor 10 No 1{table QD Crestor 10 MG MG t} MG DULoxetine DULoxetine No DULoxetine HCl 60 MG HCl 60 MG HCl 60 MG Vitamin B12 Vitamin B12 No Vitamin B12 ARIPiprazol ARIPiprazol No 1{table QD ARIPiprazo e 5 MG e 5 MG t} le 5 MG Centrum Centrum No Centrum Silver Silver Silver DULoxetine DULoxetine No 1{capsu QD DULoxetine HCl 60 MG HCl 60 MG le} HCl 60 MG Losartan Losartan No 1{table QD Losartan Potassium-H Potassium-H t} Potassium- CTZ 100-25 CTZ 100-25 HCTZ MG MG 100-25 MG Multivitami Multivitami No Multivitam n - n - in - Crestor 10 Crestor 10 No 1{table QD Crestor 10 MG MG t} MG Gabapentin Gabapentin No 1{table Gabapentin 600 MG 600 MG t} 600 MG Crestor 10 Crestor 10 No 1{table QD Crestor 10 MG MG t} MG Aspir-81 81 Aspir-81 81 No 1{table QD Aspir-81 MG MG t} 81 MG Xarelto 20 Xarelto 20 No 1{table QD Xarelto 20 MG MG t_with_ MG food} Losartan Losartan No 1{table QD Losartan Potassium Potassium t} Potassium 100 MG 100 MG 100 MG Metoprolol Metoprolol No 1{table QD Metoprolol Succinate Succinate t} Succinate ER 25 MG ER 25 MG ER 25 MG DULoxetine DULoxetine No DULoxetine HCl 60 MG HCl 60 MG HCl 60 MG Losartan Losartan No 1{table QD Losartan Potassium-H Potassium-H t} Potassium- CTZ 100-25 CTZ 100-25 HCTZ MG MG 100-25 MG Vital Signs Vital Name Observation Time Observation Value Comments Source height 2022-12-12 09:40:00 71 [in_i] [facility] weight 2022-12-12 09:40:00 245 [lb_av] [facility] temperature 2022-12-12 09:40:00 97.4 [degF] [facility] bmi 2022-12-12 09:40:00 34.17 kg/m2 [facility] oximetry 2022-12-12 09:40:00 96 % [facility] respiratory rate 2022-12-12 09:40:00 16 /min Comm on [facility] blood pressure 2022-12-12 09:40:00 132 mm[Hg] [facility] - systolic [facility] blood pressure 2022-12-12 09:40:00 75 mm[Hg] [facility] - diastolic [facility] height 2022-12-12 09:40:00 71 [in_i] [facility] weight 2022-12-12 09:40:00 245 [lb_av] [facility] temperature 2022-12-12 09:40:00 97.4 [degF] [facility] bmi 2022-12-12 09:40:00 34.17 kg/m2 [facility] oximetry 2022-12-12 09:40:00 96 % [facility] respiratory rate 2022-12-12 09:40:00 16 /min Comm on [facility] blood pressure 2022-12-12 09:40:00 132 mm[Hg] [facility] - systolic [facility] blood pressure 2022-12-12 09:40:00 75 mm[Hg] [facility] height 2022-08-07 09:30:00 71 [in_i] [facility] weight 2022-08-07 09:30:00 247 [lb_av] [facility] temperature 2022-08-07 09:30:00 98 [degF] [facility] bmi 2022-08-07 09:30:00 34.45 kg/m2 [facility] blood pressure 2022-08-07 09:30:00 132 mm[Hg] [facility] - systolic [facility] blood pressure 2022-08-07 09:30:00 70 mm[Hg] [facility] - diastolic [facility] height 2022-05-13 11:30:00 71 [in_i] [facility] weight 2022-05-13 11:30:00 250 [lb_av] [facility] temperature 2022-05-13 11:30:00 97.4 [degF] [facility] bmi 2022-05-13 11:30:00 34.86 kg/m2 [facility] blood pressure 2022-05-13 11:30:00 137 mm[Hg] [facility] - systolic [facility] blood pressure 2022-05-13 11:30:00 73 mm[Hg] [facility] - diastolic [facility] height 2022-02-04 08:40:00 71 [in_i] [facility] weight 2022-02-04 08:40:00 250 [lb_av] [facility] temperature 2022-02-04 08:40:00 98 [degF] [facility] bmi 2022-02-04 08:40:00 34.86 kg/m2 [facility] blood pressure 2022-02-04 08:40:00 134 mm[Hg] [facility] systolic [facility] blood pressure 2022-02-04 08:40:00 76 mm[Hg] [facility] - diastolic [facility] height 2022-01-10 09:20:00 71 [in_i] Common [facility] weight 2022-01-10 09:20:00 249 [lb_av] [facility] bmi 2022-01-10 09:20:00 34.72 kg/m2 Common [facility] height 2021-11-27 10:40:00 71.00 [in_i] Common [facility] weight 2021-11-27 10:40:00 249.0 [lb_av] [facility] temperature 2021-11-27 10:40:00 97.8 [degF] [facility] bmi 2021-11-27 10:40:00 34.72 kg/m2 [facility] oximetry 2021-11-27 10:40:00 98 % [facility] respiratory rate 2021-11-27 10:40:00 17 /min [facility] blood pressure 2021-11-27 10:40:00 137 mm[Hg] Common [facility] - systolic [facility] blood pressure 2021-11-27 10:40:00 80 mm[Hg] Common [facility] diastolic [facility] height 2021-10-11 10:20:00 71.00 [in_i] [facility] weight 2021-10-11 10:20:00 252.8 [lb_av] [facility] temperature 2021-10-11 10:20:00 98.1 [degF] [facility] bmi 2021-10-11 10:20:00 35.25 kg/m2 [facility] oximetry 2021-10-11 10:20:00 97 % [facility] respiratory rate 2021-10-11 10:20:00 17 /min Comm on [facility] blood pressure 2021-10-11 10:20:00 136 mm[Hg] [facility] - systolic [facility] blood pressure 2021-10-11 10:20:00 83 mm[Hg] [facility] - diastolic [facility] height 2021-10-11 10:40:00 71.00 [in_i] [facility] weight 2021-10-11 10:40:00 252.8 [lb_av] [facility] - [facility] temperature 2021-10-11 10:40:00 98.1 [degF] [facility] bmi 2021-10-11 10:40:00 35.25 kg/m2 Common S [facility] oximetry 2021-10-11 10:40:00 97 % Common [facility] blood pressure 2021-10-11 10:40:00 136 mm[Hg] [facility] - systolic [facility] blood pressure 2021-10-11 10:40:00 83 mm[Hg] [facility] - diastolic [facility] height 2021-06-28 08:30:00 71.00 [in_i] Common S [facility] weight 2021-06-28 08:30:00 250 [lb_av] Common S [facility] temperature 2021-06-28 08:30:00 98 [degF] [facility] pirit [facility] bmi 2021-06-28 08:30:00 34.86 kg/m2 Common [facility] p[facility] - [facility] blood pressure 2021-06-28 08:30:00 123 mm[Hg] [facility] - systolic [facility] blood pressure 2021-06-28 08:30:00 86 mm[Hg] Common [facility] - diastolic [facility] Procedures This patient has no known procedures. Encounters Start End Encounter Admission Attending Care Care Encounter Source Date/Time Date/Time Type Type Clinicians Facility Department ID 2022-08-06 Outpatient Nava, [facility] [id number] Common 11:46:00 Formerly [facility] [address] [facility] 2022-08-05 Outpatient Nava, STLMLC STLMLC [id number] Common 09:27:01 Bijan [id number] [facility] 2021-10-11 Outpatient Nava, STLMLC STLMLC [id number] Common 09:56:00 Bijan [facility] 2021-09-12 Outpatient Nava, STLMLC STLMLC [id number] Common 13:24:58 Bijan [id number] [facility] 2021-09-12 Outpatient Nava, STLMLC STLMLC [id number] Common 13:09:12 Bijan 08620 [facility] 2021-09-12 Outpatient Justin, Na STLMLC STLMLC [id number] Common 12:39:15 [id number] [facility] 2021-09-12 Outpatient Justin, Na STLMLC STLMLC [id number] Common 12:38:20 05505 [facility] 2021-09-12 Outpatient Justin, Na STLMLC STLMLC [id number] Common 12:37:18 [id number] [facility] 2021-09-12 Outpatient Justin, Na STLMLC STLMLC [id number] Common 12:28:41 60802 [facility] 2021-09-12 Outpatient Justin, Na STLMLC STLMLC [id number] Common 11:48:06 [id number] [facility] 2021-09-12 Outpatient Justin, Na STLMLC STLMLC [id number] Common 11:33:28 [id number] [facility] 2021-09-12 Outpatient Justin, Na STLMLC STLMLC [id number] Common 11:21:29 13857 [facility] 2022-12-12 2022-12-12 OFFICE STLMLC STLMLC [id number] Co mmon 00:00:00 00:00:00 VISIT Spirit ESTAB PT - CHI LEVEL 4 [facility] 2022-12-12 2022-12-12 SUB ANNUAL STLMLC STLMLC [id number] Common 00:00:00 00:00:00 MCR Spirit WELLNESS - CHI VISIT [facility] 2022-08-29 2022-08-29 (TEL) STLMLC STLMLC [id number] Co mmon 00:00:00 00:00:00 Spirit - CHI [facility] 2022-08-07 2022-08-07 OFFICE STLMLC STLMLC [id number] Co mmon 00:00:00 00:00:00 VISIT Spirit ESTAB PT - CHI LEVEL 4 [facility] 2022-05-13 2022-05-13 OFFICE STLMLC STLMLC [id number] Co mmon 00:00:00 00:00:00 VISIT Spirit ESTAB PT - CHI LEVEL 4 [facility] 2022-02-15 2022-02-15 (TEL) STLMLC STLMLC [id number] Co mmon 00:00:00 00:00:00 Spirit - CHI [facility] 2022-02-04 2022-02-04 OFFICE STLMLC STLMLC [id number] Co mmon 00:00:00 00:00:00 VISIT Spirit ESTAB PT - CHI LEVEL 4 [facility] 2022-01-10 2022-01-10 OFFICE STLMLC STLMLC [id number] Co mmon 00:00:00 00:00:00 VISIT EST Spir it PT LEVEL 3 - CHI [facility] 2022-01-09 2022-01-09 (TEL) STLMLC STLMLC [id number] Co mmon 00:00:00 00:00:00 Spirit - CHI [facility] 2021-12-22 2021-12-22 Letter ANGELICA Meza [id number] Univers 00:00:00 00:00:00 (Out) Lisa EDWARDS [id number] it y of [facility] [id number] [place] [phone] [address] 2021-12-21 2021-12-21 Outpatient Lito SYED [facility] [id number] Univers 09:15:00 09:16:34 TIFFANIE andrew [facility] 2021-12-21 2021-12-21 Laboratory Only, Ang Db Test [facility] [id number] Univers 09:15:00 09:16:34 Only Bret [facility] [id number] itsimone moncada [place] [id number] [place] MONET?BLEA [phone] Ny cherelle [address] MEDICAL OFFICE BUILDING 2021-11-28 2021-11-28 (TEL) STLMLC STLMLC [id number] Co mmon 00:00:00 00:00:00 [facility] 2021-11-27 2021-11-27 OFFICE STLMLC STLMLC [id number] Co mmon 00:00:00 00:00:00 VISIT EST Spir it PT LEVEL 3 - [facility] 2021-11-27 2021-11-27 (TEL) STLMLC STLMLC [id number] Co mmon 00:00:00 00:00:00 [facility] 2021-10-11 2021-10-11 OFFICE STLMLC STLMLC [id number] Co mmon 00:00:00 00:00:00 VISIT Spirit ESTAB PT - CHI LEVEL 4 [facility] 2021-10-11 2021-10-11 SUB ANNUAL STLMLC STLMLC [id number] Common 00:00:00 00:00:00 MCR [facility] WELLNESS - CHI VISIT [facility] 2021-09-21 2021-09-21 (TEL) STLMLC STLMLC [id number] Co mmon 00:00:00 00:00:00 [facility] 2021-06-28 2021-06-28 OFFICE STLMLC STLMLC [id number] Co mmon 00:00:00 00:00:00 VISIT Spirit ESTAB PT - CHI LEVEL 4 [facility] 2021-06-21 2021-06-21 (TEL) STLMLC STLMLC [id number] Co mmon 00:00:00 00:00:00 [facility] 2021-02-26 2021-02-26 Outpatient STLMLC STLMLC [id number] Common 00:00:00 00:00:00 [facility] 2021-02-26 2021-02-26 Outpatient STLMLC STLMLC [id number] Common 00:00:00 00:00:00 [facility] 2021-01-16 2021-01-16 Outpatient STLMLC STLMLC [id number] Common 00:00:00 00:00:00 [facility] 2020-10-25 2020-10-25 Outpatient STLMLC STLMLC [id number] Common 00:00:00 00:00:00 [facility] 2020-09-27 2020-09-27 Outpatient STLMLC STLMLC [id number] Common 00:00:00 00:00:00 [facility] 2020-09-27 2020-09-27 Outpatient STLMLC STLMLC [id number] Common 00:00:00 00:00:00 [facility] 2020-05-09 2020-05-09 Outpatient STLMLC STLMLC [id number] Common 00:00:00 00:00:00 [facility] 2020-05-05 2020-05-05 [facility] [id number] Common 11:49:00 11:49:00 [address] [place] [address] [facility] 2020-04-12 2020-04-12 Out[facility] [id number] Common 08:55:00 08:55:00 [place] [address] [facility] 2020-03-17 2020-03-17 [facility] [id number] Common 09:15:00 09:15:00 [place] [address] [facility] 2020-03-16 2020-03-16 [facility] [id number] Common 11:20:00 11:20:00 [place] [address] [facility] 2020-03-16 2020-03-16 [facility] [id number] Common 11:00:00 11:00:00 [place] [address] [facility] 2019-12-28 2019-12-28 [facility] [id number] Common 11:20:00 11:20:00 [place] [address] [facility] 2019-12-17 2019-12-17 [facility] [id number] Common 11:08:00 11:08:00 [place] [address] [facility] 2019-10-12 2019-10-12 Outpatient Breann, [facility] [id number] [facility] 07:30:00 07:30:[address] [facility] 2019-10-11 2019-10-11 Outpatient Breann, [facility] [id number] [facility] 07:30:00 07:30:[address] [facility] 2019-09-06 2019-09-06 [facility] [id number] Common 14:37:00 14:37:00 t Specialty/U Sp juanito Specialty rology - CHI /Urology Clinic [facility] 2019-06-17 2019-06-17 [facility] [id number] Common 13:15:00 13:15:00 [address] [place] [address] [facility] 2019-04-09 2019-04-09 [facility] [id number] Common 13:10:00 13:10:00 [place] [address] [facility] 2019-03-04 2019-03-04 Out[facility] [id number] Common 09:40:00 09:40:00 [place] [address] [facility] 2018-12-04 2018-12-04 [facility] [id number] Common 15:26:00 15:26:00 [place] [address] [facility] 2018-11-27 2018-11-27 [facility] [id number] Common 09:40:00 09:40:00 [place] [address] [facility] 2018-10-20 2018-10-20 [facility] [id number] Common 08:15:00 08:15:00 [place] [address] [facility] 2018-08-21 2018-08-21 Out[facility] [id number] Common 08:57:00 08:57:00 [place] [address] [facility] 2018-08-13 2018-08-13 Out[facility] [id number] Common 08:55:00 08:55:00 [facility] 2018-07-22 2018-07-22 Out[facility] [id number] Common 08:30:00 08:30:00 [facility] Results Test Description Test Time Test Comments Results Result Comments Source CBC W/AUTO DIFF 2023-04-07 00:00:00 Test Item Value Reference Range Interpretation Comme nts NUCLEATED RBCS (test code 0.0 /100 WBC'S See_Comment [Automated message] The = 21103-1) system which ge nerated this result transmit archana reference range: 0.0 /100 WBC'S. The reference range was not used to interpret th is result as normal/abnormal . ABSOLUTE EOSINOPHILS (test 0.16 K/UL See_Comment [Automated message] The code = 05733-8) system which generated this result transmit archana reference range: 0.00-0.5 0 K/UL. The reference range was not used to interpret th is result as normal/abnormal . ABSOLUTE LYMPHOCYTES (test 2.14 K/UL See_Comment [Automated message] The code = 51222-4) system which generated this result transmit archana reference range: 1.00-4.0 0 K/UL. The reference range was not used to interpret th is result as normal/abnormal . ABSOLUTE MONOCYTES (test 0.72 K/UL See_Comment [A utomated message] The code = 49678-3) system which generated this result transmit archana reference range: 0.20-1.0 0 K/UL. The reference range was not used to interpret th is result as normal/abnormal . ABSOLUTE NEUTROPHILS (test 4.66 K/UL See_Comment [Automated message] The code = 72130-0) system which generated this result transmit archana reference range: 1.50-7.5 0 K/UL. The reference range was not used to interpret th is result as normal/abnormal . BASOPHILS (test code = 0.9 % 90048-8) EOSINOPHILS (test code = 2.0 % 81820-1) HEMATOCRIT (test code = 44.9 % See_Comment [Au tomated message] The 84810-2) system which ge nerated this result transmit archana reference range: 40.0-51. 0 %. The reference range was not used to interpret th is result as normal/abnormal . HEMOGLOBIN (test code = 14.8 G/DL See_Comment [Au tomated message] The 718-7) system which ge nerated this result transmit archana reference range: 13.5-17. 0 G/DL. The reference range was not used to interpret th is result as normal/abnormal . LYMPHOCYTES (test code = 27.2 % 12466-8) MCH (test code = 45150-7) 28.2 PG See_Comment [ Automated message] The system which ge nerated this result transmit archana reference range: 25.0-33. 0 PG. The reference range was not used to interpret th is result as normal/abnormal . MCHC (test code = 63050-5) 33.0 G/DL See_Comment [Automated message] The system which ge nerated this result transmit archana reference range: 31.0-36. 0 G/DL. The reference range was not used to interpret th is result as normal/abnormal . MCV (test code = 23818-4) 85.5 fL See_Comment [ Automated message] The system which [employer] nerated this result transmit archana reference range: 80.0-99. 0 fL. The reference range was not used to interpret th is result as normal/abnormal . MONOCYTES (test code = 9.2 % 28288-9) NEUTROPHILS (test code = 59.3 % 36908-9) PLATELET COUNT (test code 233 K/UL See_Comment [ Automated message] The = 32750-0) system which ge nerated this result transmit archana reference range: 130-400 K/UL. The reference range was not used to interpret th is result as normal/abnormal . RBC (test code = 27981-4) 5.25 M/UL See_Comment [ Automated message] The system which [employer] nerated this result transmit archana reference range: 4.50-6.1 0 M/UL. The reference range was not used to interpret th is result as normal/abnormal . RDW (test code = 91375-0) 12.5 % See_Comment [ Automated message] The system which [employer] nerated this result transmit archana reference range: 11.5-15. 0 %. The reference range was not used to interpret th is result as normal/abnormal . WBC (test code = 75167-7) 7.9 K/UL See_Comment [ Automated message] The system which ge nerated this result transmit archana reference range: 3.5-11.0 K/UL. The reference range was not used to interpret th is result as normal/abnormal . PSA W/REFLEX TO FREE [id number] 00:00:00 Test Item Value Reference Range Interpretation Comments PROSTATE SPECIFIC AG 0.89 NG/ML See_Comment [Autom ated message] (test code = The system [facility] 48724-2) generated this result transmitted ref erence range: <=4.00 N G/ML. The reference r pamella was not used to int erpret this result as normal/abnormal . HEMOGLOBIN [id number] 00:00:00 Test Item Value Reference Range Interpretation Comments HEMOGLOBIN A1c (test 6.3 % See_Comment H [Autom ated message] The code = 4548-4) system which generated this result tra nsmitted reference range : 4.2-5.6 %. The referenc e range was not used to interpret this result as normal/abnormal . TSH REFLEX TO FREE [id number] 00:00:00 Test Item Value Reference Range Interpretation Comments TSH REFLEX TO FREE 1.280 UIU/ML See_Comment [Automat ed message] T4 (test code = The system w [facility] 11314-7) generated this result transmitted ref erence range: 0.400-4. 100 UIU/ML. The ref erence range was not u sed to interpret this result as normal/abnor mal. HEPATITIS C [id number] 00:00:00 Test Item Value Reference Range Interpretation Comments HEPATITIS C ANTIBODY (test code NON-REACTIVE NON-REACTIVE = 35586-2) URINALYSIS (CULTURE IF INDICATED)2023-04-07 00:00:00 Test Item Value Reference Range Interpretation Comments APPEARANCE (test code = CLEAR CLEAR 5767-9) BILIRUBIN (test code = NEGATIVE NEGATIVE 5770-3) COLOR (test code = YELLOW YELLOW-STRAW 5778-6) GLUCOSE (test code = NEGATIVE NEGATIVE 5792-7) KETONES (test code = NEGATIVE NEGATIVE 5797-6) LEUKOCYTE ESTERASE NEGATIVE NEGATIVE (test code = 5799-2) NITRITE (test code = NEGATIVE NEGATIVE 2-4) OCCULT BLOOD (test code NEGATIVE NEGATIVE = 61942-1) pH (test code = 5803-2) 5.5 5.0-9.0 PROTEIN (test code = NEGATIVE NEGATIVE 57222-7) SPECIFIC GRAVITY (test 1.023 1.005-1.035 code = 5811-5) UROBILINOGEN (test code 1.0 MG/DL See_Comment [Au tomated message] = 70151-4) The system [facility] generated this result transmitted ref erence range: <=2.0 MG /DL. The reference r pamella was not used to interpret this result as normal/abnor mal. LIPID PANEL WITH REFLEX DIRECT [id number] 00:00:00 Test Item Value Reference Range Interpretation Comments CALC LDL CHOL (test 53 MG/DL See_Comment [Automa archana message] code = 24644-5) The system [facility] generated this result transmit archana reference range : <100 MG/DL. The reference range was not used to interpret this result as normal/abnormal . CHOLESTEROL (test code 121 MG/DL See_Comment [Aut omated message] = 3-3) The system [facility] generated this result transmit archana reference range : <200 MG/DL. The reference range was not used to interpret this result as normal/abnormal . HDL CHOLESTEROL (test 40 MG/DL See_Comment [Auto mated message] code = 5-9) The system [facility] generated this result transmit archana reference range : >39 MG/DL. The refe rence range was not u sed to interpret th is result as normal/abnormal . RISK RATIO LDL/HDL 1.33 RATIO See_Comment [Automat ed message] (test code = 59399-2) The sy stem which generated this result transmit archana reference range : <3.55 RATIO. Th e reference range was not used to interpret this result as normal/abnormal . TRIGLYCERIDES (test 215 MG/DL See_Comment H [Automa archana message] code = 2571-8) The system [facility] generated this result transmit archana reference range : <150 MG/DL. The reference range was not used to interpret this result as normal/abnormal . COMPREHENSIVE METABOLIC [id number] 00:00:00 Test Item Value Reference Range Interpretation Comments ALBUMIN (test code = 4.6 G/DL See_Comment [Autom ated message] 9821-7) The system [facility] generated this result transmit archana reference range : 3.5-5.2 G/DL. T he reference range was not used to interpret this result as normal/abnormal . ALKALINE PHOSPHATASE 142 U/L See_Comment H [Autom ated message] (test code = 6768-6) The sys tem which generated this result transmit archana reference range : 40-125 U/L. The reference range was not used to interpret this result as normal/abnormal . BILIRUBIN, TOTAL 0.4 MG/DL See_Comment [Automated message] (test code = 1975-2) The sys tem which generated this result transmit archana reference range : <=1.2 MG/DL. Th e reference range was not used to interpret this result as normal/abnormal . BUN (test code = 13 MG/DL See_Comment [Automated message] 3094-0) The system [facility] generated this result transmit archana reference range : 8-23 MG/DL. The reference range was not used to interpret this result as normal/abnormal . CALCIUM (test code = 9.7 MG/DL See_Comment [Autom ated message] 40465-5) The system [facility] generated this result transmit archana reference range : 8.5-10.5 MG/DL. The reference range was not used to interpret this result as normal/abnormal . CALC A/G RATIO (test 2.6 RATIO See_Comment [Autom ated message] code = 1759-0) The system [facility] generated this result transmit archana reference range : 1.0-2.6 RATIO. The reference range was not used to interpret this result as normal/abnormal . CALC BUN/CREAT (test 11 RATIO See_Comment [Autom ated message] code = 3097-3) The system [facility] generated this result transmit archana reference range : 6-28 RATIO. The reference range was not used to interpret this result as normal/abnormal . CALC GLOBULIN (test 1.8 G/DL See_Comment L [Automa archana message] code = 74550-2) The system [facility] generated this result transmit archana reference range : 1.9-3.7 G/DL. T he reference range was not used to interpret this result as normal/abnormal . CARBON DIOXIDE (test 23 MEQ/L See_Comment [Autom ated message] code = 1963-8) The system [employer] generated this result transmit archana reference range : 19-31 MEQ/L. Th e reference range was not used to interpret this result as normal/abnormal . CHLORIDE (test code 105 MEQ/L See_Comment [Automa archana message] = 2074-0) The [facility] [employer] generated this result transmit archana reference range : 95-107 MEQ/L. T he reference range was not used to interpret this result as normal/abnormal . CREATININE (test 1.18 MG/DL See_Comment [Automated message] code = 2160-0) The system [employer] generated this result transmit archana reference range : 0.80-1.40 MG/DL . The reference range was not used to interpret this result as normal/abnormal . eGFR (2020 CKD-EPI) 65 ML/MIN/1.73 See_Comment [Auto mated message] (test code = The system [facility] [employer] 74880-7) generated this result transmit archana reference range : >60 ML/MIN/1.73. Th e reference range was not used to interpret this result as normal/abnormal . GLUCOSE (test code = 136 MG/DL See_Comment H [Autom ated message] 1558-6) The system [facility] [employer] generated this result transmit archana reference range : 70-99 MG/DL. Th e reference range was not used to interpret this result as normal/abnormal . POTASSIUM (test code 4.2 MEQ/L See_Comment [Autom ated message] = 2823-3) The system [facility] [employer] generated this result transmit archana reference range : 3.5-5.4 MEQ/L. The reference range was not used to interpret this result as normal/abnormal . PROTEIN, TOTAL (test 6.4 G/DL See_Comment [Autom ated message] code = 2885-2) The system [employer] generated this result transmit archana reference range : 6.1-8.3 G/DL. T he reference range was not used to interpret this result as normal/abnormal . AST (test code = 13 U/L See_Comment [Automated message] 1920-8) The system [employer] generated this result transmit archana reference range : 9-50 U/L. The reference range was not used to interpret this result as normal/abnormal . ALT (test code = 14 U/L See_Comment [Automated message] 1742-6) The system [employer] generated this result transmit archana reference range : 5-50 U/L. The reference range was not used to interpret this result as normal/abnormal . SODIUM (test code = 149 MEQ/L See_Comment H [Automa archana message] 9127-2) The system [employer] generated this result transmit archana reference range : 133-146 MEQ/L. The reference range was not used to interpret this result as normal/abnormal . BASIC METABOLIC [id number] 07:19:00 Test Item Value Reference Range Interpretation Comments SODIUM (test code = 137 MMOL/L 137-145 N NA) POTASSIUM (test code = 3.6 MMOL/L 3.5-5.1 N K) CHLORIDE (test code = 101 MMOL/L [...] code = 8.2 MG/DL 8.4-10.2 L CA) [id number] 07:18:00 Test Item Value Reference Range Interpretation Comments ACT-ISTAT (test code = ACTI) 208 SEC 74-137 H BASIC METABOLIC [id number] 06:39:00 Test Item Value Reference Range Interpretation [...] 8.2 MG/DL 8.4-10.2 L CA) BASIC METABOLIC [id number] 06:38:00 Test Item Value Reference Range Interpretation [...] code = MG/DL 8.7-9.7 CA) BASIC METABOLIC [id number] 06:38:00 Test Item Value Reference Range Interpretation [...] code = MG/DL 8.7-9.7 CA) BASIC METABOLIC [id number] 06:35:00 Test Item Value Reference Range Interpretation [...] code = CA) MG/DL 8.7-9.7 CBC W/AUTO [id number] 06:17:00 Test Item Value Reference Range Interpretation [...] code = 0.00 K/mm3 0.0-0.1 N NRBC#) [id number] 12:37:00 Test Item Value Reference Range Interpretation Comments ACT-ISTAT (test code = ACTI) 323 SEC 74-137 H [id number] 11:26:00 Test Item Value Reference Range Interpretation Comments ACT-ISTAT (test code = ACTI) 362 SEC 74-137 H [id number] 11:26:00 Test Item Value Reference Range Interpretation Comments ACT-ISTAT (test code = ACTI) 285 SEC 74-137 H [id number] 11:26:00 Test Item Value Reference Range Interpretation Comments ACT-ISTAT (test code = ACTI) 329 SEC 74-137 H [id number] 11:26:00 Test Item Value Reference Range Interpretation Comments ACT-ISTAT (test code = ACTI) 296 SEC 74-137 H [id number] 11:26:00 Test Item Value Reference Range Interpretation Comments ACT-ISTAT (test code = ACTI) 307 SEC 74-137 H BASIC METABOLIC [id number] 06:52:00 Test Item Value Reference Range Interpretation [...] code = 9.1 MG/DL 8.4-10.2 N CA) [id number] 06:52:00 Test Item Value Reference Range Interpretation Comments MAGNESIUM (test code = MAG) 1.9 MG/DL 1.6-2.3 N PROTHROMBIN [id number] 06:52:00 Test Item Value Reference Range Interpretation Comments PROTHROMBIN TIME 11.8 SECONDS 9.4-12.5 N PATIENT (test code = PTP) INTERNATIONAL NORMAL 1.1 The INR is to be RATIO (test code = used only for INR) monitoring oral anticoagulantth erap y. INDICATION I NR VALUE ---- ---- ---- -------1. Prophylaxis, de ep venous thrombos is, including high risk surgery. 2.0 - 3.0 2. Prophylaxis, deep venous thrombosis, hip surgery, treatm ent for deep venous thrombosis or pulmonary prevention of systemic emboli sm in patients wit h valvular heart disease, atrial fibrillation, tissue heart va lve, or acute myocar dial infarction. 2. 0 - 3.0 3. Thread Checker al prosthesis hear t valves, recurre nt systemic emboli sm. 3.0 - 4.5 PTT [id number] 06:52:00 Test Item Value Reference Range Interpretation Comments PTT ACTIVATED (test code = APTT) 32.5 SECONDS 25.1-36.5 N BASIC METABOLIC [id number] 06:49:00 Test Item Value Reference Range Interpretation [...] CALCIUM (test code = CA) MG/DL 8.7-9.7 [id number] 06:49:00 Test Item Value Reference Range Interpretation Comments MAGNESIUM (test code = MAG) MG/DL 1.6-2.3 CBC W/AUTO [id number] 06:39:00 Test Item Value Reference Range Interpretation [...] = 0.00 K/mm3 0.0-0.1 N NRBC#) BEDSIDE [id number] 10:33:00 Test Item Value Reference Range Interpretation Comments BEDSIDE CREATININE (test code = 1.2 MG/DL 0.6-1.4 N CREATBED) - CTA [id number] 09:27:00 Patient Name: MARLEN CHUA Unit No: [id number] EXAMS: CPT CODE: [id number] CTA CHEST 14980 EXAM: -CTA CHEST Location code:C3 HISTORY: 68 years old Male with AFIB. Evaluate for pulmonary embolus. TECHNIQUE: CHEST: Volumetric data acquisition through the chest with intravenous contrast timed to maximally opacify the pulmonary arteries constructed as contiguous axial volumes, coronal MIP and sagittalreconstruction images. Automated exposure reduction (Auto mA/Smart mA) [...] No pleural effusion. No pneumothorax. No pulmonary consolidat ion. No central endobronchial masses. Mediastinum and neck: Nonspecific 1.1 cm right paratracheal lymph node with normal fatty hilum. Otherwise no mediastinal or hilar adenopathy.. The thyroid gland isnot well evaluated within the field of view. Cardiac: No cardiomegaly or pericardial effusion. Mildcoronary artery calcification is present. Thoracic Aorta: The aorta is normal in caliber. A few scattered atherosclerotic calcifications noted along the thoracic aorta. Abdomen: There is small hiatal hernia. Otherwise, no upper abdominal abnormality identified. Musculoskeletal: No acute osseous findings. Mild, multilevel degenerative changes of the spine are present. IMPRESSION: No evidence of pulmon karissa embolus to the segmental level. No significant acute intrathoracic process. SHARON Tran NAME: MARLEN CHUA[address] PHYS: [place] [address] : 1950 AGE: 68 SEX: M LOC: Z.CTS PHONE #: [phone] EXAM DATE: 10/11/2019 STATUS: REG CLI FAX #: [phone] RAD #: D/C DT PAGE 1 Signed Report (CONTINUED) Patient Name: MARLEN CHUA Unit No: [id number] EXAMS: CPT CODE: [id number] CTA CHEST 05027 (Continued) at 0927 Reported and signed by: Margaret Todd, [facility]: Aleksandr Crain Technologist: Ivan Johnson, RT(R); Caden CTDI: DLP: Trnscrpt: 10/11/2019 (092 7) [email or web address] DEMETRA Marc NAME: MARLEN CHUA [id number] [address] PHYS: [place] [address] : 1950 AGE: 68 SEX: M LOC: Ania.CTS PHONE #: [phone] EXAM DATE: 10/11/2019 STATUS: REG CLI FAX #: [phone] RAD #: D/C DT PAGE 2 Signed Report Patient Name: MARLEN CHUA Unit No: [id number] EXAMS: CPT CODE: [id number] CTA CHEST 06973 (Continued) Orig Print D/T: S: 10/11/2019 (0930) SHARON Tran NAME: MARLEN CHUA [id number] [address] PHYS: [place] [address] : 1950 AGE: 68 SEX: M LOC: Z.CTS PHONE #: [phone] EXAM DATE: 10/11/2019 STATUS: REG CLI FAX #: [phone] RAD #: D/C DT PAGE 3 Signed Report
--- NOTE | 2023-07-02 10:41 | EDPHYS ---
Physician Documentation [facility] Name: Mario Alberto Granados Jr Age: 72 yrs Sex: Male : 1950 Arrival Date: 07/02/2023 Time: 10:15 Bed 11 Private MD: ED Physician Marco Gabriel HPI: 07/02 10:42 This 72 yrs old Male presents to ER via Ambulatory with complaints of Neck ec2 Pain, >24Hrs Old, Arm Pain. 10:42 Patient with history of chronic neck pain, limited neck mobility arrives today due to ec2 concern for right trapezius and neck pain. States that he has pain with his range of motion, worse with movement, states that he feels some numbness and tingling in the right shoulder as well as occasional paresthesias in the right hand. Patient reports no traumas or injuries, denies any strength deficits. Patient reports that he has not seen his primary care doctor and has not had advanced imaging for this.. Historical: - Allergies: 10:37 No Known Allergies; mb9 - Home Meds: 10:37 None [Active]; mb9 - PMHx: 10:37 Back pain; mb9 - PSHx: 10:37 None; mb9 - Immunization history:: Adult Immunizations up to date. - Social history:: Smoking status: Patient denies any tobacco usage or history of. ROS: 10:42 Constitutional: as per hpi ec2 Exam: 10:42 Constitutional: GEN: NAD Head: atraumatic Eyes: EOMI Ears: External ears are ec2 normal. CV: regular rate LUNGS: no respiratory distress ABD: non-distended SKIN: no evidence of rashes MSK: no evidence of trauma, no C spine TTP, TTP over the trapezius region NEURO: moves all extremities equally, intact strength in the bilateral upper extremities, intact sensation in the bilateral upper extremities. Vital Signs: 10:32 BP 141 / 79; Pulse 78; Resp 18; Temp 97.7; Pulse Ox 100% on R/A; Weight 111.13 kg; mb9 Height 5 ft. 11 in. ; Pain 10/10; 10:32 Body Mass Index 34.17 (111.13 kg, 180.34 cm) mb9 10:32 Pain Scale: Adult mb9 MDM: 10:41 Patient medically screened. ec2 10:42 Data reviewed: vital signs. ED course: Patient arrives today due to concern for right ec2 neck pain with occasional paresthesias in the right upper extremity. Examination remarkable for nontoxic individual who has a reassuring neurologic exam and TTP to the right trapezius. I suspect patient has either cervical radiculopathy or muscle spasm causing his symptoms. I will prescribe him muscle relaxer and steroid in case of cervical radiculopathy. Ultimately patient needs an outpatient MRI with his primary care doctor which I instructed him to. I considered other process such as fractures and spinal cord pathology however patient without any red flag symptoms and no traumatic injuries.. Administered Medications: 11:11 Drug: Diazepam PO 5 mg PO once Route: PO; ll1 11:20 Follow up: Response: No adverse reaction; Pain is decreased; RASS: Alert and Calm (0) ll1 11:11 Drug: Lidoderm Topical Patch 5 % (700 mg/patch) 1 patches Topical once; leave on for 12 ll1 hours; cover most painful area; may cut into smaller pieces {Note: R side of neck and R lower back.} Route: Topical; Site: affected area; 11:21 Follow up: Response: No adverse reaction; Pain is decreased ll1 11:12 Drug: Ketorolac IM 30 mg IM once Route: IM; Site: right deltoid; ll1 11:20 Follow up: Response: No adverse reaction ll1 Disposition Summary: 07/02/23 10:41 Discharge Ordered Condition: Stable ec2 Diagnosis - Sprain of joints and ligaments of unspecified parts of neck, sequela ec2 - Cervical disc disorder with radiculopathy ec2 Discharge Instructions: - Discharge Summary Sheet ec2 - Cervical Radiculopathy, [id number] ec2 Forms: - Medication Reconciliation Form ec2 - Thank You Letter ec2 - Antibiotic Education ec2 - Prescription Opioid Use ec2 - Patient Portal Instructions ec2 - Leadership Thank You Letter ec2 Prescriptions: - Prednisone 20 mg Oral Tablet - take 1 tablet ORAL route once daily for 5 days; 5 tablet; Refills: 0, Product ec2 Selection Permitted - methocarbamol 750 mg Oral tablet - take 1 tablet ORAL route 4 times per day; 20 tablet; Refills: 0, Product ec2 Selection Permitted Signatures: James Roa RN RN ll1 Genoveva Moralez RN RN mb9 Marco Gabriel MD MD ec2 Corrections: (The following items were deleted from the chart) 10:35 Allergies: No Known Allergies; mb9 mb9 10:35 Home Meds: None; mb9 mb9 10:35 PMHx: None; mb9 mb9 10:35 PSHx: None; mb9 mb9
--- NOTE | 2023-07-02 10:41 | ER ---
Nurse's Notes [facility] Name: Mario Alberto Granados Jr Age: 72 yrs Sex: Male : 1950 Arrival Date: 07/02/2023 Time: 10:15 Bed 11 Private MD: Diagnosis: Sprain of joints and ligaments of unspecified parts of neck, sequela;Cervical disc disorder with radiculopathy Presentation: 07/02 10:32 Chief complaint: Patient states: "For the past 4 days now, I have pain in my right side mb9 of my neck that radiates down my right arm. I haven't fallen or anything. The pain feels sharp". Coronavirus screen: At this time, the client does not indicate any symptoms associated with coronavirus-19. Ebola Screen: No symptoms or risks identified at this time. Initial Sepsis Screen: Does the patient meet any 2 criteria? No. Patient's initial sepsis screen is negative. Does the patient have a suspected source of infection? No. Patient's initial sepsis screen is negative. Risk Assessment: Do you want to hurt yourself or someone else? Patient reports no desire to harm self or others. Onset of symptoms was 2022. 10:32 Method Of Arrival: Ambulatory mb9 10:32 Acuity: HERMELINDA 4 mb9 Triage Assessment: 10:34 General: Appears in no apparent distress. Behavior is calm, cooperative. Pain: mb9 Complains of pain in neck Pain radiates to right arm Quality of pain is described as sharp, shooting, stabbing, Pain began 2-3 days ago. Is intermittent. EENT: No signs and/or symptoms were reported regarding the EENT system. Neuro: Conde Agitation-Sedation Scale (RASS): 0 - Alert and Calm Level of Consciousness is awake, alert, obeys commands, Oriented to person, place, time, situation, Appropriate for age. Cardiovascular: Patient's skin is warm and dry. Respiratory: Airway is patent Respiratory effort is even, unlabored, Respiratory pattern is regular, symmetrical. Derm: Skin is pink, warm \\T\\ dry. Historical: - Allergies: 10:37 No Known Allergies; mb9 - Home Meds: 10:37 None [Active]; mb9 - PMHx: 10:37 Back pain; mb9 - PSHx: 10:37 None; mb9 - Immunization history:: Adult Immunizations up to date. - Social history:: Smoking status: Patient denies any tobacco usage or history of. Screenin:12 [facility] ED Fall Risk Assessment (Adult) Score/Fall Risk Level 0 - 2 = Low Risk ll1 Oriented to surroundings, Maintained a safe environment, Educated pt \\T\\ family on fall prevention, incl call for assistance when getting out of bed, Hourly rounding (assess needs \\T\\ fall precautionary measures) done. Abuse screen: Denies threats or abuse. Nutritional screening: No deficits noted. Tuberculosis screening: No symptoms or risk factors identified. Assessment: 10:35 Reassessment: see triage assessment. mb9 11:12 Reassessment: No changes from previously documented assessment. Patient and/or family ll1 updated on plan of care and expected duration. Pain level reassessed. Patient is alert, oriented x 3, equal unlabored respirations, skin warm/dry/pink. 11:21 Reassessment: No changes from previously documented assessment. Patient and/or family ll1 updated on plan of care and expected duration. Pain level reassessed. Patient is alert, oriented x 3, equal unlabored respirations, skin warm/dry/pink. Vital Signs: 10:32 BP 141 / 79; Pulse 78; Resp 18; Temp 97.7; Pulse Ox 100% on R/A; Weight 111.13 kg; mb9 Height 5 ft. 11 in. ; Pain 10/10; 10:32 Body Mass Index 34.17 (111.13 kg, 180.34 cm) mb9 10:32 Pain Scale: Adult mb9 ED Course: 10:18 Patient arrived in ED. mg5 10:19 Marco Gabriel MD is Attending Physician. ec2 10:34 Triage completed. mb9 10:36 Arm band placed on. mb9 11:11 James Roa, ISHMAEL is Primary Nurse. ll1 11:12 No provider procedures requiring assistance completed. Patient did not have IV access ll1 during this emergency room visit. 11:14 Provided Education on: ER process and procedures. ll1 11:21 Patient has correct armband on for positive identification. Bed in low position. ll1 Administered Medications: 11:11 Drug: Diazepam PO 5 mg PO once Route: PO; ll1 11:20 Follow up: Response: No adverse reaction; Pain is decreased; RASS: Alert and Calm (0) ll1 11:11 Drug: Lidoderm Topical Patch 5 % (700 mg/patch) 1 patches Topical once; leave on for 12 ll1 hours; cover most painful area; may cut into smaller pieces {Note: R side of neck and R lower back.} Route: Topical; Site: affected area; 11:21 Follow up: Response: No adverse reaction; Pain is decreased ll1 11:12 Drug: Ketorolac IM 30 mg IM once Route: IM; Site: right deltoid; ll1 11:20 Follow up: Response: No adverse reaction ll1 Medication: 11:14 VIS not applicable for this client. 1 Outcome: 10:41 Discharge ordered by . ec2 11:12 Discharged to home ambulatory, 1 11:12 Condition: stable 11:12 Discharge instructions given to patient, family, Instructed on discharge instructions, follow up and referral plans. no driving heavy equipment, medication usage, Demonstrated understanding of instructions, follow-up care, medications, Prescriptions given X 2, 11:21 Patient left the ED. 1 Signatures: James Roa RN RN ll1 Genoveva Moralez RN RN Cha Huerta mg5 Marco Gabriel MD MD ec2 Corrections: (The following items were deleted from the chart) 10:35 10:32 Pulse 78bpm; Resp 18bpm; Pulse Ox 100% RA; Temp 97.7F; mb9 9 10:39 10:35 Allergies: No Known Allergies; mb9 9 10:39 10:35 Home Meds: None; mb9 mb9 10:39 10:35 PMHx: None; mb9 mb9 10:39 10:35 PSHx: None; mb9 mb9
[2023-07-02] MEDS ORDERED: LIDOCAINE 4% PATCH ONE (11:17)
[2023-07-02] MEDS ORDERED: DIAZEPAM 5 MG TABLET ONE (11:17)
[2023-07-02 11:26] VITALS: BP 141/79; TEMP 97.7; O2SAT 100
== END 2023-07-02 11:21 | disposition home or self-care (01) ==
LOC: ER 10:15
DX: S13.9XXS Sprain of joints and ligaments of unspecified parts of neck, sequela (principal); M50.13 Cervical disc disorder with radiculopathy, cervicothoracic region
CPT/HCPCS: 96372; 99284; J2001